=== PATIENT | female | born 1975 | race Caucasian/White ===

== ENCOUNTER 2018-01-09 12:03 | Emergency (ER) | payer SELFPAY ==
--- OUTSIDE RECORDS SUMMARY | 2018-01-09 12:07 | XMS REPORT | Continuity of Care Document ---
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 [place] 14.5 /2014 [place] HEMATOLOGY MCH 28.6 pg 27.0 - 06/01 [place] 31.0 /2014 [place] HEMATOLOGY MCHC 32.8 g/dL 32.0 - 06/01 [place] 36.0 [place] HEMATOLOGY Hct 38.3 % 36.0 - 06/01 [place] 48.0 /2014 [place] HEMATOLOGY MCV 87.1 fL 80.0 - 06/01 [place] 98.0 /2014 [place] HEMATOLOGY RBC 4.39 M/CMM 4.20 - 06/01 [place] 5.40 /2014 [place] HEMATOLOGY Hgb 12.6 g/dL 12.0 - 06/01 [place] 16.0 /2014 [place] HEMATOLOGY WBC 7.4 K/CMM 3.7 - 10.4 06/01 [place] HEMATOLOGY Basophils # 0.0 K/CMM 0.0 - 0.2 06/01 [place] HEMATOLOGY Eosinophils 0.1 K/CMM 0.0 - 0.5 06/01 [place] # /2014 [place] HEMATOLOGY Segs-Bands # 6.7 K/CMM 1.5 - 8.1 06/01 [place] HEMATOLOGY Lymphocytes 4.2 % 20.0 - 06/01 [place] 40.0 /2014 [place] HEMATOLOGY Segs 90.4 % 45.0 - 06/01 [place] 75.0 /2014 [place] HEMATOLOGY Eosinophils 1.6 % 0.0 - 4.0 06/01 [place] HEMATOLOGY Monocytes 3.7 % 2.0 - 12.0 06/01 [place] HEMATOLOGY Basophils 0.1 % 0.0 - 1.0 06/01 [place] HEMATOLOGY RBC Morph Normal 06/01 [place] (06/01/14 12:37 PM) HEMATOLOGY Plt Morph Normal 06/01 [place] /2014 [place] (06/01/14 12:37 PM) HEMATOLOGY Monocytes # 0.3 K/CMM 0.0 - 0.8 06/01 [place] HEMATOLOGY Lymphocytes 0.3 K/CMM 1.0 - 5.5 06/01 [place] # /2014 [place] Chest 2 Chest 2 Chest 2 views. 06/01 [place] views views /2014 HISTORY: Cough and fever. Read by: Davian Merino MD Dictated Date/time: 06/01/14 15:24 Electronically Signed by: Davian Merino MD 06/01/14 15:25 FINAL REPORT Cardiac silhouette normal in size. No active infiltrates in either lung. CONCLUSION: 1. No active disease in the chest. Brain wo Brain wo Examination: Brain wo contrast CT 06/01 [facility] contrast CT contrast CT /2014 Dose: 691 mGy-cm Read by: Karl Riddle MD Dictated Date/time: 06/01/14 13:52 History: Syncope Electronically Signed by: Karl Riddle MD 06/01/14 14:10 FINAL REPORT DIAGNOSIS: 1. No acute intracranial findings are identified. 2. Postoperative changes of a suboccipital craniotomy 3. Other findings as below. FINDINGS: CT scanning of the brain without contrast was completed. Tube [employer] Operator views demonstrate no incidental findings.. The exam is compared to recent MRI dated 28 April 2014 which demonstrated recent yañez ges of suboccipital craniotomy for Chiari one malformation. No evidence of edema, acute infarction, mass or mass-effect is identified. The ventricles are normal. There is no evidence intra or extra-axial hemorrhage. No abnormal fluid collections are evident. Deep white matter and basal ganglia appear unremarkable. The sinuses, as seen, demonstrate no abnormality. Of note are changes of recent suboccipital craniotomy with a small posterior fluid collection at the site of surgical resection of the inferior margin of the occipital bone with ectasia of the dura s econdary to occipital craniotomy. On this nonenhanced study, it is somewhat difficult to exclude a small seroma posteriorly. Brain w/wo Brain w/wo EXAM: MRI OF THE BRAIN WITH AND WITHOUT CONTRAST [facility] contrast contrast MRI /2014 [facility] DATE: 04/28/2014. Read by: Olga Travis MD Dictated Date/time: 04/28/14 17:15 Electronically Signed by: Olga Travis MD 04/28/14 17:24 FINAL REPORT CLINICAL HISTORY: Chiari malformation status post surgery February 2014 COMPARISON: none TECHNIQUE : Multiplanar imaging of the brain was obtained with and without contrast. 17 cc of Omniscan was administered intravenously. FINDINGS: Interval postsurgical changes related to suboccipital decompression with small areas of encephalomalacia in the inferior aspects of the cerebellar tonsils. A small postsurgical fluid collection/pseudome ningocele is seen dorsal to the craniotomy defect. A small postoperative subdural hygroma/chronic subdural hematoma is seen in the left aspect of the posterior fossa measuring up to 6 mm in thickness wi th mild indentation of the underlying left cerebellar hemisphere. Remainder of the brain parenchyma is unchanged in appearance. Stable scattered foci of T2 and FLAIR hyperintense signal abnormality in the supratentorial white matter are nonspecific. Ventricles are nor mal in size. The basal cisterns are patent. The major intracranial flow voids are preserved. No abnormal parenchymal enhancement. IMPRESSION: 1. Postsurgical changes related to recent suboccipital decompression. 2. No acute intracranial abnormality. CHEM PANEL Magnesium 2.0 mg/dL 1.8 - 2.4 02/28 [facility]2013 [facility] CHEM PANEL Phosphorus 3.2 mg/dL 2.5 - 4.5 02/[address] CHEM PANEL eGFR 94 02/28 1Result Comment: The eGFR is calculated using the CKD-EPI formula. In most young, healthy individuals the eGFR will be >90 mL/ min/1.73m2. The eGFR declines with age. An eGFR of 60-89 may be normal in [facility] mL/min/1.7 /2013 some populations, particularly the elderly, for whom the CKD-EPI formula has not been extensively validated. Use of the eGFR is not recommended in the following populations: [address] Individuals with unstable creatinine concentrations, including patients and those with serious co-morbid conditions. Patients with extremes in muscle mass or diet. The data above are obtained from the National Kidney Disease Education Program (NKDEP) which additionally recommends that when the eGFR is used in patients with extremes of body mass index for purposes of drug dosing, the eGFR should be multiplied by the estimated BMI. CHEM PANEL Calcium Lvl 8.5 mg/dL 8.5 - 10.5 02/28 [facility] CHEM PANEL Glucose Lvl 114 mg/dL 70 - 99 02/28 4Interpretive Data: Adult reference range values reflect the clinical guidelines of the [place] [employer]. [facility] CHEM PANEL CO2 27 meq/L 24 - 32 02/28 [facility] CHEM PANEL Chloride Lvl 103 meq/L 95 - 109 02/28 [facility] CHEM PANEL Sodium Lvl 138 meq/L 135 - 145 02/28 [facility] CHEM PANEL Creatinine 0.8 mg/dL 0.5 - 1.4 02/28 [facility] CHEM PANEL Potassium 4.1 meq/L 3.5 - 5.1 02/28 [facility] CHEM PANEL BUN 9 mg/dL 7 - 22 02/28 [facility] CHEM PANEL AGAP 12.1 meq/L 10.0 - 02/28 20.0 [facility] HEMATOLOGY Basophils # 0.1 K/CMM 0.0 - 0.2 02/28 [facility] HEMATOLOGY Monocytes # 0.9 K/CMM 0.0 - 0.8 02/28 [facility] HEMATOLOGY Lymphocytes 1.5 K/CMM 1.0 - 5.5 02/28 [facility] HEMATOLOGY Segs-Bands # 14.7 K/CMM 1.5 - 8.1 02/28 [facility] HEMATOLOGY Basophils 0.5 % 0.0 - 1.0 02/28 [facility] HEMATOLOGY Monocytes 5.1 % 2.0 - 12.0 02/28 [facility] HEMATOLOGY Lymphocytes 8.9 % 20.0 - 02/28 40.0 [facility] HEMATOLOGY Segs 85.5 % 45.0 - 02/28 75.0 [facility] HEMATOLOGY Eosinophils 0.1 % 0.0 - 4.0 02/28 [facility] HEMATOLOGY MPV 8.7 fL 7.4 - 10.4 02/28 [facility] HEMATOLOGY Platelet 237 K/CMM 133 - 450 02/28 [facility] HEMATOLOGY RDW 13.3 % 11.5 - 02/28 [facility] 14.5 [facility] HEMATOLOGY MCHC 34.1 g/dL 32.0 - 02/28 [facility] 36.0 [facility] HEMATOLOGY MCH 29.9 pg 27.0 - 02/28 [facility] 31.0 [facility] HEMATOLOGY MCV 87.9 fL 80.0 - 02/28 [facility] 98.0 /2013 [facility] HEMATOLOGY Hct 39.0 % 36.0 - 02/28 [facility] 48.0 [facility] HEMATOLOGY Hgb 13.3 g/dL 12.0 - 02/28 [facility] 16.0 [facility] HEMATOLOGY RBC 4.44 M/CMM 4.20 - 02/28 [facility] 5.40 /2013 [facility] HEMATOLOGY WBC 17.2 K/CMM 3.7 - 10.4 02/28 [facility] PARATHYROID Ca Norm WB 1.10 1.05 - 02/28 [facility] PROFILE mMol/L 1. [facility] PARATHYROID Ca Ion WB 1.09 1. - 02/28 [facility] PROFILE mMol/L 1. [facility] CHEM PANEL Magnesium 2.5 mg/dL 1.8 - 2.4 02/27 [facility] CHEM PANEL Phosphorus 3.9 mg/dL 2.5 - 4.5 02/27 [facility] ELECTROLYTE AGAP 14.0 meq/L 10.0 - 02/27 [facility] 20.0 [facility] ELECTROLYTE Glucose Lvl 110 mg/dL 70 - 99 02/27 5Interpretive Data: Adult reference range values reflect the clinical guidelines of the [place] [employer]. [facility] ELECTROLYTE Chloride Lvl 107 meq/L 95 - 109 02/27 [facility] ELECTROLYTE Potassium 4.0 meq/L 3.5 - 5.1 02/27 [facility] ELECTROLYTE Sodium Lvl 142 meq/L 135 - 145 02/27 [facility] ELECTROLYTE Creatinine 0.9 mg/dL 0.5 - 1.4 02/27 [facility] ELECTROLYTE BUN 8 mg/dL 7 - 22 02/27 [facility] ELECTROLYTE Calcium Lvl 8.5 mg/dL 8.5 - 10.5 02/27 [facility] ELECTROLYTE CO2 25 meq/L 24 - 32 02/27 [facility] S [facility] ELECTROLYTE eGFR 82 02/27 2Result Comment: The eGFR is calculated using the CKD-EPI formula. In most young, healthy individuals the eGFR will be > 90 mL/min/1.73m2. The eGFR declines with age. An eGFR of 60-89 may be normal in [facility] mL/min/1. some populations, particularly the elderly, for whom the CKD-EPI formula has not been extensively validated. Use of the eGFR is not recommended in the following populations: [address] Individuals with unstable creatinine concentrations, including patients and those with serious co-morbid conditions. Patients with extremes in muscle mass or diet. The data above are obtained from the National Kidney Disease Education Program (NKDEP) which additionally recommends that when the eGFR is used in patients with extremes of body mass index for purposes of drug dosing, the eGFR should be multiplied by the estimated BMI. HEMATOLOGY Platelet 262 K/CMM 133 - 450 02/27 [facility] HEMATOLOGY MPV 8.7 fL 7.4 - 10.4 02/27 [facility] HEMATOLOGY RDW 13.2 % 11.5 - 02/27 [facility] 14.5 [facility] HEMATOLOGY MCHC 34.2 g/dL 32.0 - 02/27 36.0 [facility] HEMATOLOGY MCV 88.0 fL 80.0 - 02/27 98.0 [facility] HEMATOLOGY MCH 30.1 pg 27.0 - 02/27 31.0 [facility] HEMATOLOGY RBC 4.53 M/CMM 4.20 - 02/27 [place] 5.40 /2013 [facility] HEMATOLOGY WBC 20.3 K/CMM 3.7 - 10.4 02/27 [facility] HEMATOLOGY Hgb 13.7 g/dL 12.0 - 02/27 16.0 [facility] HEMATOLOGY Hct 39.9 % 36.0 - 02/27 48.0 [facility] HEMATOLOGY Segs-Bands # 18.6 K/CMM 1.5 - 8.1 02/27 [facility] HEMATOLOGY Segs 91.9 % 45.0 - 02/27 [place] 75.0 [facility] HEMATOLOGY Monocytes 3.5 % 2.0 - 12.0 02/27 [facility] HEMATOLOGY Basophils 0.2 % 0.0 - 1.0 02/27 [facility] HEMATOLOGY Lymphocytes 4.4 % 20.0 - 02/27 [facility] 40. [facility] HEMATOLOGY Monocytes # 0.7 K/CMM 0.0 - 0.8 02/27 [facility] HEMATOLOGY Lymphocytes 0.9 K/CMM 1.0 - 5.5 02/27 [facility] PARATHYROID Ca Norm WB 1.05 1. - 02/27 [facility] PROFILE mMol/L 1. [facility] PARATHYROID Ca Ion WB 1.04 1.05 - 02/27 [facility] PROFILE mMol/L 1. [facility] BACTERIAL - MRSA by PCR Negative 02/26 11Interpretive Data: Interpretive Data: The [employer] Light[employer] MRSA assay is a qualitative test for the direct detection of nasal colonization with methicillin-resistant Staphylococcus aureus (MRSA) to aid [facility] in the prevention and control of MRSA infections in healthcare settings. A positive result does not indicate an infection or require treatment. A negative result does not exclude colonization or infection. [facility] (02/26/14 5:00 PM) [place] The polymerase chain reaction (PCR) assay detects a proprietary sequence indicative of the integration of the SCCmec cassette into the Staphylococcus aureus chromosome, indicating the presence of MRSA D NA. The assay utilizes FDA cleared IVD reagents. Performance characteristics have been verified by the [facility] within the [facility]. The [facility] atory is authorized under the Clinical Laboratory Improvement Amendment of 1988 (CLIA-88) to perform high complexity testing. CHEM PANEL eGFR 82 02/26 3Result Comment: The eGFR is calculated using the CKD-EPI formula. In most young, healthy individuals the eGFR will be >90 mL/ min/1.73m2. The eGFR declines with age. An eGFR of 60-89 may be normal in [facility] mL/min/1. some populations, particularly the elderly, for whom the CKD-EPI formula has not been extensively validated. Use of the eGFR is not recommended in the following populations: [address] Individuals with unstable creatinine concentrations, including patients and those with serious co-morbid conditions. Patients with extremes in muscle mass or diet. The data above are obtained from the National Kidney Disease Education Program (NKDEP) which additionally recommends that when the eGFR is used in patients with extremes of body mass index for purposes of drug dosing, the eGFR should be multiplied by the estimated BMI. CHEM PANEL Calcium Lvl 8.1 mg/dL 8.5 - 10.5 02/26 [facility] CHEM PANEL Potassium 3.8 meq/L 3.5 - 5.1 02/26 [facility] Center CHEM PANEL Sodium Lvl 141 meq/L 135 - 145 02/26 [facility] CHEM PANEL Creatinine 0.9 mg/dL 0.5 - 1.4 02/26 [facility] Center CHEM PANEL CO2 21 meq/L 24 - 32 02/26 [facility] CHEM PANEL Chloride Lvl 109 meq/L 95 - 109 02/26 [facility] CHEM PANEL BUN 11 mg/dL 7 - 22 02/26 [facility] CHEM PANEL Glucose Lvl 145 mg/dL 70 - 99 02/26 6Interpretive Data: Adult reference range values reflect the clinical guidelines of the [place] [employer]. [facility] CHEM PANEL AGAP 14.8 meq/L 10.0 - 02/26 20. [facility] CHEM PANEL Magnesium 1.5 mg/dL 1.8 - 2.4 02/26 [facility] Center CHEM PANEL Phosphorus 2.2 mg/dL 2.5 - 4.5 02/26 [facility] CHEM PANEL Bili Direct 0.1 mg/dL 0.0 - 0.3 02/26 [facility] CHEM PANEL Total 6.2 g/dL 6.4 - 8.4 02/26 [facility] CHEM PANEL ALT 27 unit/L 0 - 65 02/26 [facility] CHEM PANEL Albumin Lvl 3.3 g/dL 3.5 - 5.0 02/26 [facility] CHEM PANEL Alk Phos 93 unit/L 39 - 136 02/26 [facility] CHEM PANEL AST 30 unit/L 0 - 37 02/26 [facility] CHEM PANEL Bili Total 0.5 mg/dL 0.2 - 1.3 02/26 [facility] CHEM PANEL Bili 0.4 mg/dL 0.0 - 1.0 02/26 [facility] Center CHEM PANEL Globulin 2.9 g/dL 2.0 - 4.0 02/26 [facility] CHEM PANEL A/G Ratio 1.1 0.7 - 1.6 02/26 [facility] HEMATOLOGY Platelet 235 K/CMM 133 - 450 02/26 [facility] HEMATOLOGY MPV 8.5 fL 7.4 - 10.4 02/26 [facility] HEMATOLOGY WBC 15.5 K/CMM 3.7 - 10.4 02/26 [facility] HEMATOLOGY RBC 4.59 M/CMM 4.20 - 02/26 5.40 [facility] HEMATOLOGY MCV 88.6 fL 80.0 - 02/26 98.0 [facility] HEMATOLOGY MCH 29.0 pg 27.0 - 02/26 31.0 [facility] HEMATOLOGY Hct 40.7 % 36.0 - 02/26 48.0 [facility] HEMATOLOGY Hgb 13.3 g/dL 12.0 - 02/26 16.0 [facility] HEMATOLOGY MCHC 32.7 g/dL 32.0 - 02/26 36.0 [facility] HEMATOLOGY RDW 13.3 % 11.5 - 02/26 14.5 [facility] HEMATOLOGY Segs 94.3 % 45.0 - 02/26 75.0 /2013 [facility] HEMATOLOGY Eosinophils 0.1 % 0.0 - 4.0 02/26 [facility] HEMATOLOGY Lymphocytes 4.6 % 20.0 - 02/26 40.0 /2013 [facility] HEMATOLOGY Basophils 0.1 % 0.0 - 1.0 02/26 [facility] HEMATOLOGY Monocytes 0.9 % 2.0 - 12.0 02/26 [facility] HEMATOLOGY Segs-Bands # 14.6 K/CMM 1.5 - 8.1 02/26 [facility] HEMATOLOGY Lymphocytes 0.7 K/CMM 1.0 - 5.5 02/26 [facility] HEMATOLOGY Monocytes # 0.1 K/CMM 0.0 - 0.8 02/26 [facility] HEMATOLOGY PTT 34.5 s 22.9 - 02/26 9Interpretive [place] 35.8 Data: [facility] Range: 57 - 92 [place] HEMATOLOGY PT 14.0 s 12.0 - 02/26 [place] 14.7 [facility] HEMATOLOGY INR 1.08 0.85 - 02/26 7Interpretive Data: RECOMMENDED RANGES FOR PROTIME INR: [facility] . 2.0-3.0 for most medical and surgical thromboembolic states. Medical 2.5-3.5 for artificial heart valves and recurrent embolism. Center INR SHOULD BE USED ONLY FOR PATIENTS ON STABLE ANTICOAGULANT THERAPY. BLOOD BANK ABO/Rh A NEG 02/26 [facility] RESULTS [facility] BLOOD BANK Antibody Negative 02/26 [facility] RESULTS [facility] (02/26/14 7:45 AM) Center URINE CHEM U Preg Negative Negative 02/26 [facility] (02/26/14 7:34 AM) [place] HEMATOLOGY PTT 36.9 s 22.9 - 02/10 10Interpretiv [facility] 35.8 e Data: [facility] Therapeutic Range: 57 - 92 [place] HEMATOLOGY PT 13.5 s 12.0 - 02/10 [facility] 14. [facility] HEMATOLOGY INR 1.03 0.85 - 02/10 8Interpretive Data: RECOMMENDED RANGES FOR PROTIME INR: [facility] . 2.0-3.0 for most medical and surgical thromboembolic states. Medical 2.5-3.5 for artificial heart valves and recurrent embolism. Center INR SHOULD BE USED ONLY FOR PATIENTS ON STABLE ANTICOAGULANT THERAPY. HEMATOLOGY Eosinophils 0.2 K/CMM 0.0 - 0.5 02/10 [facility] HEMATOLOGY Eosinophils 2.3 % 0.0 - 4.0 02/10 [facility] Vital Signs Vital Sign Value Date Comments Source Heart Rate 88 11/30/2014 [facility] Temperature Oral (F) 98.0 F 11/30/2014 [facility] Systolic (mm Hg) 107 11/30/2014 [facility] Diastolic (mm Hg) 71 11/30/2014 [facility] Respitory Rate 18 11/30/2014 [facility] Weight 68.182 11/30/2014 [facility] Height 157.48 cm 11/30/2014 [facility] BMI Calculated 27.49 11/30/2014 [facility] Systolic (mm Hg) 114 11/30/2014 [facility] Diastolic (mm Hg) 70 11/30/2014 [facility] Heart Rate 89 11/30/2014 [facility] Respitory Rate 18 11/30/2014 [facility] Temperature Oral (F) 98.2 F 11/30/2014 [facility] Weight 160.2 06/24/2014 [facility] Height 62 06/24/2014 [facility] Temperature Oral (F) 97.5 F 06/24/2014 [facility] Heart Rate 94 06/24/2014 [facility] Systolic (mm Hg) 113 06/24/2014 [facility] Diastolic (mm Hg) 76 06/24/2014 [facility] Respitory Rate 18 06/01/2014 [place] Heart Rate 102 06/01/2014 [place] Systolic (mm Hg) 91 06/01/2014 [place] Diastolic (mm Hg) 61 06/01/2014 [place] Temperature Oral (F) 98.4 F 06/01/2014 [place] Diastolic (mm Hg) 58 06/01/2014 [place] Systolic (mm Hg) 99 06/01/2014 [place] Respitory Rate 16 06/01/2014 [place] Heart Rate 110 06/01/2014 [place] Temperature Oral (F) 102.5 F 06/01/2014 [place] Heart Rate 112 06/01/2014 [place] Respitory Rate 17 06/01/2014 [place] Diastolic (mm Hg) 69 06/01/2014 [place] Systolic (mm Hg) 101 06/01/2014 [place] Temperature Oral (F) 99 F 06/01/2014 [place] Weight 73.636 06/01/2014 [place] Weight 163 04/07/2014 [facility] Height 62 04/07/2014 [facility] Temperature Oral (F) 98.2 F 04/07/2014 [facility] Respitory Rate 18 04/07/2014 [facility] Heart Rate 103 04/07/2014 [facility] Systolic (mm Hg) 118 04/07/2014 [facility] Diastolic (mm Hg) 76 04/07/2014 [facility] Weight 165.4 03/10/2014 [facility] Temperature Oral (F) 97.3 F 03/10/2014 [facility] Respitory Rate 18 03/10/2014 [facility] Heart Rate 87 03/10/2014 [facility] Height 62 03/10/2014 [facility] Systolic (mm Hg) 115 03/10/2014 [facility] Diastolic (mm Hg) 77 03/10/2014 [facility] Systolic (mm Hg) 102 02/28/2014 [facility] Respitory Rate 18 02/28/2014 [facility] Temperature Oral (F) 98.4 F 02/28/2014 [facility] Heart Rate 74 02/28/2014 [facility] Diastolic (mm Hg) 66 02/28/2014 [facility] Temperature Oral (F) 98.5 F 02/28/2014 [facility] Heart Rate 71 02/28/2014 [facility] Diastolic (mm Hg) 62 02/28/2014 [facility] Systolic (mm Hg) 99 02/28/2014 [facility] Respitory Rate 18 02/28/2014 [facility] Heart Rate 78 02/28/2014 [facility] Temperature Oral (F) 98.4 F 02/28/2014 [facility] Diastolic (mm Hg) 64 02/28/2014 [facility] Systolic (mm Hg) 101 02/28/2014 [facility] Respitory Rate 17 02/28/2014 [facility] BMI Calculated 33.71 02/26/2014 [facility] Weight 83.6 02/26/2014 [facility] Height 157.48 cm 02/26/2014 [facility] BMI Calculated 29.33 02/26/2014 [facility] Weight 72.727 02/26/2014 [facility] Height 157.48 cm 02/26/2014 [facility] Weight 167 02/24/2014 [facility] Height 62 02/24/2014 [facility] Temperature Oral (F) 98 F 02/24/2014 [facility] Heart Rate 83 02/24/2014 [facility] Systolic (mm Hg) 106 02/24/2014 [facility] Diastolic (mm Hg) 77 02/24/2014 [facility] Height 157.48 cm 02/10/2014 [facility] Weight 75 02/10/2014 [facility] BMI Calculated 30.24 02/10/2014 [facility] Weight 164.2 12/30/2013 [facility] Height 62 12/30/2013 [facility] Temperature Oral (F) 97.2 F 12/30/2013 [facility] Heart Rate 83 12/30/2013 [facility] Systolic (mm Hg) 117 12/30/2013 [facility] Diastolic (mm Hg) 77 12/30/2013 [facility] Encounters Location Location Encounter Encounter Reason Attending ADM DC Status Source Details Type Number For Provider Date Date Visit [facility] [id number] Sander Gordon 12/30 12/30 [facility]10 [facility] [id number] Sander Gordon 01/01 01/02 [facility] Outpt Diag [id number] Sander Gordon 01/02 01/03 [facility] /2013 [facility] [place] [facility] [id number] Sander Gordon 01/06 01/06 [facility] Visit 2860 MD /2013 Neuro e [facility] [id number] Sander Gordon 02/24 02/24 [facility]60 [facility] [id number] Sander Gordon 02/26 02/28 [facility] /2013 [facility] [id number] Sander Gordon 03/10 03/10 [facility] Visit 3680 MD /2013 Neuro e [facility] [id number] Sander Gordon 04/07 04/07 [facility]30 [facility] [id number] Sander Gordon 04/28 04/29 [facility] Services /2014 [facility] [place] [id number] Eliazar Gordon 06/01 06/01 [facility] [place] [facility] /2014 [facility] [id number] Sander Gordon 06/24 06/24 [facility] Visit 2980 MD /2014 Neuro e [facility] [place] [id number] Lani 11/30 11/30 [facility] [place] /2014 [facility] Outpatient [id number] RYLAN HAWKINS 08/11 [facility]2016 [facility] Procedure Code Date Perfomer Comments Source smoking/tobacco 14 04/07/2014 yes [facility] cessation, patient education and counseling smoking/tobacco 14 03/10/2014 yes [facility] cessation, patient education and counseling Tooth extraction [id number] [facility]
--- OUTSIDE RECORDS SUMMARY | 2018-01-09 12:08 | XMS REPORT | Summary of Care ---
:1975 Author Encounter HORTENCIA Boothe(VEE) [id number] Date(s): 04/28/14 - 04/28/14 [facility] Outpatient Imaging - [facility] [address] Discharge Disposition: Home Physician Attending: Sander Gordon MD Reason for Visit 348.4 - COMPRESSION OF Problem List Condition Effective Dates Status Health Status Informant Anxiety(Confirmed) Active Chiari malformation type Active I(Confirmed) Depression(Confirmed) Active GERD - Gastro-esophageal reflux Active disease(Confirmed) Migraine headache(Confirmed)1 Resolved 1with dizziness and syncopy Allergies, Adverse Reactions, Alerts Substance Reaction Severity Status Benadryl Active codeine Active sulfa drugs Active Medications No data available for this section Medications Administered During Your Visit No data available for this section Immunizations No data available for this section Social History Social History Type Response Alcohol Use: Current, Frequency: 1-2 times per month, Previous treatment: None Smoking Status Current every day smoker, Type: Cigarettes, Exposure to Tobacco Smoke pt smokes, Cigarette Smoking Last 365 Days Yes, Reg Smoking Cessation Counseling No
--- OUTSIDE RECORDS SUMMARY | 2018-01-09 12:08 | XMS REPORT | Summary of Care ---
:1975 Author Encounter [facility] Jonathanr_leidy(VEE) [id number] Date(s): 01/02/14 - 01/02/14 [facility] Outpatient Imaging [address] Discharge Disposition: Home Physician Attending: Sander Gordon MD Reason for Visit 348.4 - COMPRESSION OF Problem List No data available for this section Allergies, Adverse Reactions, Alerts No data available for this section Medications No data available for this section Medications Administered During Your Visit No data available for this section Immunizations No data available for this section
--- OUTSIDE RECORDS SUMMARY | 2018-01-09 12:08 | XMS REPORT | Summary of Care ---
:1975 Author Encounter [id number]) [id number] Date(s): 02/26/14 - 02/28/[address] Discharge Disposition: Home Physician Attending: Sander Gordon MD Physician Admitting: Sander Gordon MD Physician_Referring: Sander Gordon MD Reason for Visit CHIARI MALFORMATION Vital Signs Most recent to oldest 1 2 3 [Reference Range]: Height 157.48 cm 157.48 cm 157.48 cm (02/26/14 4:21 PM) (02/26/14 7:36 AM) (02/10/14 2:19 PM) Temperature Oral [96.4-99.1 98.4 DegF 98.5 DegF 98.4 DegF DegF] (02/28/14 8:30 AM) (02/28/14 4:11 AM) (02/28/14 12:09 AM) Systolic Blood Pressure 102 mmHg 99 mmHg 101 mmHg [90-140 mmHg] (02/28/14 8:30 AM) (02/28/14 4:11 AM) (02/28/14 12:09 AM) Diastolic Blood Pressure 66 mmHg 62 mmHg 64 mmHg [60-90 mmHg] (02/28/14 8:30 AM) (02/28/14 4:11 AM) (02/28/14 12:09 AM) Respiratory Rate [14-20 BRMIN] 18 BRMIN 18 BRMIN 17 BRMIN (02/28/14 8:30 AM) (02/28/14 4:11 AM) (02/28/14 12:09 AM) Peripheral Pulse Rate [60-100 74 bpm 71 bpm 78 bpm bpm] (02/28/14 8:30 AM) (02/28/14 4:11 AM) (02/28/14 12:09 AM) Weight 83.6 kg 72.727 kg 75 kg (02/26/14 4:21 PM) (02/26/14 7:36 AM) (02/10/14 2:19 PM) Body Mass Index 33.71 m2 29.33 m2 30.24 m2 (02/26/14 4:21 PM) (02/26/14 7:36 AM) (02/10/14 2:19 PM) Problem List Condition Effective Dates Status Health Status Informant Anxiety(Confirmed) Active Chiari malformation type Active I(Confirmed) Depression(Confirmed) Active GERD - Gastro-esophageal reflux Active disease(Confirmed) Migraine headache(Confirmed)1 Resolved 1with dizziness and syncopy Allergies, Adverse Reactions, Alerts Substance Reaction Severity Status Benadryl Active codeine Active sulfa drugs Active Medications acetaminophen-hydrocodone 325 mg-10 mg oral tablet 1 tab, Route: PO, Drug Form: TAB, Dosing Weight 72.727, kg, Q4H, PRN Pain Score 4-6, Start date: 02/26/14 14:16:00, Duration: 30 day, Stop date: 03/28/14 14:15: 00 Notes: (Same as: [place] 325/10) Start Date: 02/26/14 Stop Date: 02/28/14 Status: Discontinuedacetaminophen-hydrocodone 325 mg-10 mg oral tablet 2 tab, Route: PO, Drug Form: TAB, Dosing Weight 72.727, kg, Q8H, PRN Pain Score 7-10, Start date: 02/26/14 14:16:00, Duration: 30 day, Stop date: 03/28/14 14:15 :00 Notes: (Same as: [place] 325/10) Start Date: 02/26/14 Stop Date: 02/28/14 Status: Discontinuedacetaminophen-hydrocodone 325 mg-10 mg oral tablet 1 tab, Route: PO, Drug Form: TAB, Dosing Weight 72.727, kg, Q4H, Start date: 10/04 16:00:00, Duration: 30 day, Stop date: 03/28/14 12:00:00 Notes: (Same as: [place] 325/10) Start Date: 02/26/14 Stop Date: 02/28/14 Status: Discontinuedacetaminophen-hydrocodone 325 mg-5 mg oral tablet 1 tab, Route: PO, Drug Form: TAB, Dosing Weight 72.727, kg, Q4H, PRN Pain Score 1-3, Start date: 02/26/14 14:16:00, Duration: 30 day, Stop date: 03/28/14 14:15: 00 Notes: (Same as: [place] 325/5) Start Date: 02/26/14 Stop Date: 02/28/14 Status: DiscontinuedAncef 2 gm, Route: IVPB, ONCE, Dosing Weight 72.727, kg, Start date: 02/26/14 9:20:00 , Duration: 1 doses or times, Stop date: 02/26/14 9:20:00 Start Date: 02/26/14 Stop Date: 02/26/14 Status: Completedbisacodyl 10 mg, 1 supp, Route: MO, Drug form: SUPP, Daily, Dosing Weight 72.727, kg, PRN Constipation, Start date: 02/26/14 14:16:00, Duration: 30 day, Stop date: 14:15:00 Notes: (Same As: Dulcolax, [place]-Lax) Start Date: 02/26/14 Stop Date: 02/28/14 Status: DiscontinuedceFAZolin 2 gm, 50 mL, Route: IVPB, Drug form: INJ, PRE OP, Start date: 02/26/14 4:00:00, Duration: 1 day, Stop date: 02/27/14 3:59:00 Start Date: 02/26/14 Stop Date: 02/28/14 Status: DiscontinuedceFAZolin (SCIP) + Sodium Chloride 0.9% IV 100 mL 2 gm, Route: IVPB, ABXQ8H, Dosing Weight 72.727, kg, Start date: 02/26/14 16:00: 00, Stop date: 02/27/14 9:20:00 Notes: (Same As: Ancef, Kefzol) Start Date: 02/26/14 Stop Date: 02/27/14 Status: Completeddexamethasone 1 mg oral tablet 1 mg=1 tab, PO, BID, # 14 tab, 0 Refill(s) Start Date: 02/28/14 Stop Date: 03/07/14 Status: OrderedDextrose 50% Syringe 6.25 gm, 12.5 mL, Route: IVP, Drug Form: INJ, Dosing Weight 72.727, kg, PRN, PRN Abnormal Lab Result, Start date: 02/26/14 14:16:00, Duration: 30 day, Stop date: 03/28/14 14:15:00 Start Date: 02/26/14 Stop Date: 02/28/14 Status: DiscontinuedDextrose 50% Syringe 12.5 gm, 25 mL, Route: IVP, Drug Form: INJ, Dosing Weight 72.727, kg, PRN, PRN Abnormal Lab Result, Start date: 02/26/14 14:16:00, Duration: 30 day, Stop date : 03/28/14 14:15:00 Start Date: 02/26/14 Stop Date: 02/28/14 Status: DiscontinuedDextrose 50% Syringe 25 gm, 50 mL, Route: IVP, Drug Form: INJ, Dosing Weight 72.727, kg, PRN, PRN Abnormal Lab Result, Start date: 02/26/14 14:16:00, Duration: 30 day, Stop date : 03/28/14 14:15:00 Start Date: 02/26/14 Stop Date: 02/28/14 Status: Discontinueddocusate sodium 100 mg oral capsule 100 mg=1 cap, PO, BID, # 20 cap, 0 Refill(s) Start Date: 02/28/14 Status: Ordereddocusate sodium 100 mg oral capsule 100 mg=1 cap, PO, BID, # 20 cap, 0 Refill(s) Start Date: 02/28/14 Status: OrderedEmend 150 mg, Route: IV, ONCE, Dosing Weight 72.727, kg, Start date: 02/26/14 15:20:00 , Stop date: 02/26/14 15:20:00 Start Date: 02/26/14 Stop Date: 02/26/14 Status: DeletedFlexeril 10 mg, 1 tab, Route: PO, Drug form: TAB, Q8H, Dosing Weight 83.6, kg, Start date : 02/27/14 8:00:00, Duration: 30 day, Stop date: 03/29/14 0:00:00 Notes: (Same As: Flexeril) Start Date: 02/27/14 Stop Date: 02/28/14 Status: Discontinuedflumazenil 0.2 mg, 2 mL, Route: IVP, Drug form: INJ, PRN, Dosing Weight 72.727, kg, PRN Benzodiazepine Reversal, Initial dose, Start date: 02/26/14 11:03:00, Duration: 1 day, Stop date: 02/27/14 11:02:00 Notes: (Same as: Romazicon) Start Date: 02/26/14 Stop Date: 02/26/14 Status: Discontinuedfosaprepitant + Sodium Chloride 0.9% IV 150 mL 150 mg, Route: IV, Drug form: INJ, ONCE, Start date: 02/26/14 15:27:00, Stop date: 02/26/14 15:27:00 Notes: Same as: Emend Start Date: 02/26/14 Stop Date: 02/26/14 Status: Completedheparin 5000 units/mL injectable solution 5,000 unit, 1 mL, Route: SUB-Q, Drug form: INJ, Q8H, Dosing Weight 83.6, kg, Start date: 02/27/14 23:59:00, Duration: 30 day, Stop date: 03/29/14 16:00:00 Notes: porcine heparin Start Date: 02/27/14 Stop Date: 02/28/14 Status: DiscontinuedhydrALAZINE 20 mg, 1 mL, Route: IVP, Drug form: INJ, Q2H, Dosing Weight 72.727, kg, PRN Other -See Comment, Start date: 02/26/14 14:16:00, Duration: 30 day, Stop date: 03/28/14 14:15:00, HTN Notes: (Same as: Apresoline)Push over 5 minutes Start Date: 02/26/14 Stop Date: 02/28/14 Status: Discontinuedhydromorphone 0.5 mg, 0.25 mL, Route: IVP, Drug form: INJ, Q5Min, Dosing Weight 72.727, kg, PRN Pain Score 7-10, Start date: 02/26/14 11:03:00, Duration: 4 doses or times, Stop date: 02/27/14 0:00:00 Notes: Same as: Dilaudid Start Date: 02/26/14 Stop Date: 02/26/14 Status: Discontinuedinsulin regular 100 units/mL human recombinant 3 unit, 0.03 mL, Route: SUB-Q, Drug form: SOLN, PRN, Dosing Weight 72.727, kg, PRN Abnormal Lab Result, Start date: 02/26/14 14:16:00, Duration: 30 day, Stop date: 03/28/14 14:15:00 Notes: (Same as: Humulin R) Roll in palms of hands gently; Do not shake vigorously. "single patientuse only"(Restricted to patients requiring a dose > 60 units) Stable for 28 days at room temperatureExpires in days from ___ Date Start Date: 02/26/14 Stop Date: 02/28/14 Status: Discontinuedinsulin regular 100 units/mL human recombinant 7 unit, 0.07 mL, Route: SUB-Q, Drug form: SOLN, PRN, Dosing Weight 72.727, kg, PRN Abnormal Lab Result, Start date: 02/26/14 14:16:00, Duration: 30 day, Stop date: 03/28/14 14:15:00 Notes: (Same as: Humulin R) Roll in palms of hands gently; Do not shake vigorously. "single patientuse only"(Restricted to patients requiring a dose > 60 units) Stable for 28 days at room temperatureExpires in days from ___ Date Start Date: 02/26/14 Stop Date: 02/28/14 Status: Discontinuedinsulin regular 100 units/mL human recombinant 5 unit, 0.05 mL, Route: SUB-Q, Drug form: SOLN, PRN, Dosing Weight 72.727, kg, PRN Abnormal Lab Result, Start date: 02/26/14 14:16:00, Duration: 30 day, Stop date: 03/28/14 14:15:00 Notes: (Same as: Humulin R) Roll in palms of hands gently; Do not shake vigorously. "single patientuse only"(Restricted to patients requiring a dose > 60 units) Stable for 28 days at room temperatureExpires in days from ___ Date Start Date: 02/26/14 Stop Date: 02/28/14 Status: Discontinuedlabetalol 10 mg, 2 mL, Route: IVP, Drug form: INJ, Q15Min, Dosing Weight 72.727, kg, PRN Hypertension, Start date: 02/26/14 14:16:00, Duration: 30 day, Stop date: 14:15:00, HTN Start Date: 02/26/14 Stop Date: 02/28/14 Status: DiscontinuedLyrica 75 mg oral capsule 75 mg=1 cap, PO, Daily, # 90 cap, 0 Refill(s) Start Date: 02/10/14 Stop Date: 02/26/14 Status: Completedmagnesium sulfate 2 gm, 50 mL, Route: IVPB, Drug form: INJ, Q2H, Start date: 02/27/14 2:00:00, Duration: 2 doses or times, Stop date: 02/27/14 4:00:00 Start Date: 02/27/14 Stop Date: 02/27/14 Status: Completedmorphine Sulfate 2 mg, 1 mL, Route: IVP, Drug form: INJ, Q2H, Dosing Weight 72.727, kg, PRN Pain Score 7-10, Start date: 02/26/14 14:16:00, Duration: 30 day, Stop date: 14:15:00 Notes: (Same as:MORPhine Sulfate) Start Date: 02/26/14 Stop Date: 02/28/14 Status: Discontinuednaloxone 0.04 mg, 0.1 mL, Route: IVP, Drug form: INJ, Q2MIN, Dosing Weight 72.727, kg, PRN Narcotic Reversal,Start date: 02/26/14 11:03:00, Duration: 8 doses or times , Stop date: 02/27/14 0:00:00 Notes: Same as Narcan Start Date: 02/26/14 Stop Date: 02/26/14 Status: DiscontinuedNasonex 50 mcg/inh nasal spray 50 microgram, Route: NASAL, Daily, Drug form: SPRY, Start date: 02/27/14 9:00:00 , Duration: 30 day, Stop date: 03/28/14 9:00:00 Notes: Non-formulary drug. (mometasone 50 microgram/inh 17 gm nasal SPR) (Same as:Nasonex) Start Date: 02/27/14 Stop Date: 02/27/14 Status: DeletedNasonex 50 mcg/inh nasal spray 1 spray, NASAL, Daily, 0 Refill(s) Start Date: 02/10/14 Status: OrderedNexIUM 40 mg, Route: PO, Drug form: ECCAP, Daily, Dosing Weight 83.6, kg, Start date: 02/27/14 9:00:00, Duration: 30 day, Stop date: 03/28/14 9:00:00 Start Date: 02/27/14 Stop Date: 02/26/14 Status: DeletedNexIUM 40 mg oral delayed release capsule 40 mg=1 cap, PO, Daily, 0 Refill(s) Start Date: 02/10/14 Status: OrderedNorco 5/325 oral tablet 1 tab, PO, Daily, 0 Refill(s) Start Date: 02/10/14 Status: Orderedondansetron 4 mg, Route: IVP, ONCE, Dosing Weight 72.727, kg, PRN Nausea & Vomiting, Start date: 02/26/14 11:03:00 Start Date: 02/26/14 Stop Date: 02/26/14 Status: Completedondansetron 4 mg, 2 mL, Route: IVP, Drug form: INJ, Q8H, Dosing Weight 72.727, kg, PRN Nausea & Vomiting, Start date: 02/26/14 14:16:00, Duration: 30 day, Stop date: 03/28/14 14:15:00 Notes: (Same as: Zofran) Start Date: 02/26/14 Stop Date: 02/28/14 Status: DiscontinuedPepcid 20 mg oral tablet 20 mg=1 tab, PO, BID, # 16 tab, 0 Refill(s) Start Date: 02/28/14 Stop Date: 03/08/14 Status: OrderedPhenergan 25 mg oral tablet 25 mg=1 tab, PO, Q4H, Nausea, # 30 tab, 0 Refill(s) Start Date: 02/28/14 Status: Orderedpotassium phosphate + Sodium Chloride 0.9% IV 250 mL 18 mmol, 6 mL, Route: IVPB, Drug form: INJ, ONCE, Start date: 02/27/14 2:00:00, Stop date: 02/27/14 2:00:00 Notes: (Same as: K Phosphate.) 1 mMol phoshate has 1.47 mEq potassium Infuse over 4 hours Start Date: 02/27/14 Stop Date: 02/27/14 Status: Completedpromethazine 6.25 mg, Route: IVPB, ONCE, Dosing Weight 72.727, kg, PRN Nausea & Vomiting , Start date: 02/26/14 11:03:00 Start Date: 02/26/14 Stop Date: 02/26/14 Status: Completedpromethazine 12.5 mg, 0.5 mL, Route: IVPB, Drug form: INJ, Q6H, Dosing Weight 72.727, kg, PRN Nausea & Vomiting, Start date: 02/26/14 14:16:00, Duration: 30 day, Stop date: 03/28/14 14:15:00 Notes: Do not give IV push. (Same as: Phenergan) Start Date: 02/26/14 Stop Date: 02/28/14 Status: DiscontinuedProtonix 40 mg, 1 tab, Route: PO, Drug form: ECTAB, Daily, Start date: 02/27/14 9:00:00, Duration: 30 day, Stop date: 03/28/14 9:00:00 Notes: (Same as: Protonix) Start Date: 02/27/14 Stop Date: 02/28/14 Status: DiscontinuedSaline Flush 0.9% 10 ml, Route: IVP, Drug Form: INJ, Dosing Weight 72.727, kg, PRN, PRN Line Flush , Start date: 02/26/14 14:16:00, Duration: 30 day, Stop date: 03/28/14 14:15:00 Notes: (Same as: BD Posiflush) Start Date: 02/26/14 Stop Date: 02/28/14 Status: DiscontinuedSaline Flush 0.9% 10 ml, Route: IVP, Drug Form: INJ, Dosing Weight 72.727, kg, Q12H, Start date: 02/26/14 21:00:00, Duration: 30 day, Stop date: 03/28/14 9:00:00 Notes: (Same as: BD Posiflush) Start Date: 02/26/14 Stop Date: 02/28/14 Status: DiscontinuedSenna 8.6 mg oral tablet 8.6 mg, 1 tab, Route: PO, Drug Form: TAB, Dosing Weight 72.727, kg, Q12H, Start date: 02/26/14 21:00:00, Duration: 30 day, Stop date: 03/28/14 9:00:00 Notes: (Same as: Senokot) Start Date: 02/26/14 Stop Date: 02/28/14 Status: DiscontinuedSEROquel XR 50 mg oral tablet, extended release 50 mg=1 tab, PO, Daily, 0 Refill(s) Start Date: 02/10/14 Stop Date: 02/26/14 Status: DiscontinuedSEROquel XR 50 mg oral tablet, extended release 50 mg=1 tab, PO, QPM, # 30 tab, 0 Refill(s) Start Date: 02/26/14 Status: Orderedsertraline 100 mg, 1 tab, Route: PO, Drug form: TAB, Daily, Dosing Weight 83.6, kg, Start date: 02/27/14 9:00:00, Duration: 30 day, Stop date: 03/28/14 9:00:00 Notes: (Same as: Zoloft) Start Date: 02/27/14 Stop Date: 02/28/14 Status: DiscontinuedSodium Chloride 0.9% + KCL 20mEq/L 1000ml (Premix) 1,000 mL 1,000 mL, Rate: 100 ml/hr, Infuse over: 10 hr, Route: IV, Dosing Weight 72.727 kg, Total Volume: 1,000, Start date: 02/26/14 14:16:00, Duration: 30 day, Stop date: 03/28/14 14:15:00 Notes: PREMIX IV - Do Not Alter Start Date: 02/26/14 Stop Date: 02/27/14 Status: DiscontinuedSodium Chloride 0.9% IV 1,000 mL 1,000 mL, Rate: 50 ml/hr, Infuse over: 20 hr, Route: IV, Dosing Weight 83.6 kg, Total Volume: 1,000,Start date: 02/26/14 16:54:00, Duration: 30 day, Stop date: 03/28/14 16:53:00 Start Date: 02/26/14 Stop Date: 02/27/14 Status: DiscontinuedZoloft 100 mg oral tablet PO, Daily, 0 Refill(s) Start Date: 02/10/14 Status: Ordered Results BLOOD BANK RESULTS Most recent to oldest [Reference Range]: 1 2 3 ABO/Rh A NEG *Unknown* (02/26/14 7:45 AM) Antibody Scrn Negative (02/26/14 7:45 AM) ELECTROLYTES Most recent to oldest 1 2 3 [Reference Range]: Sodium Lvl [135-145 mEq/L] 138 mEq/L 142 mEq/L 141 mEq/L (02/28/14 5:29 AM) (02/27/14 9:30 AM) (02/26/14 5:00 PM) Potassium Lvl [3.5-5.1 4.1 mEq/L 4.0 mEq/L 3.8 mEq/L mEq/L] (02/28/14 5:29 AM) (02/27/14 9:30 AM) (02/26/14 5:00 PM) Chloride Lvl [95-109 mEq/L] 103 mEq/L 107 mEq/L 109 mEq/L (02/28/14 5:29 AM) (02/27/14 9:30 AM) (02/26/14 5:00 PM) CO2 [24-32 mEq/L] 27 mEq/L 25 mEq/L 21 mEq/L (02/28/14 5:29 AM) (02/27/14 9:30 AM) *LOW* (02/26/14 5:00 PM) AGAP [10.0-20.0 mEq/L] 12.1 mEq/L 14.0 mEq/L 14.8 mEq/L (02/28/14 5:29 AM) (02/27/14 9:30 AM) (02/26/14 5:00 PM) CHEM PANEL Most recent to oldest 1 2 3 [Reference Range]: Creatinine Lvl [0.5-1.4 0.8 mg/dL 0.9 mg/dL 0.9 mg/dL mg/dL] (02/28/14 5:29 AM) (02/27/14 9:30 AM) (02/26/14 5:00 PM) eGFR 94 mL/min/1.73m2 1 82 mL/min/1.73m2 2 82 mL/min/1.73m2 3 *NA* *NA* *NA* (02/28/14 5:29 AM) (02/27/14 9:30 AM) (02/26/14 5:00 PM) BUN [7-22 mg/dL] 9 mg/dL 8 mg/dL 11 mg/dL (02/28/14 5:29 AM) (02/27/14 9:30 AM) (02/26/14 5:00 PM) Glucose Lvl [70-99 mg/dL] 114 mg/dL 4 110 mg/dL 5 145 mg/dL 6 *HI* *HI* *HI* (02/28/14 5:29 AM) (02/27/14 9:30 AM) (02/26/14 5:00 PM) Total Protein [6.4-8.4 g/dL] 6.2 g/dL *LOW* (02/26/14 5:00 PM) Albumin Lvl [3.5-5.0 g/dL] 3.3 g/dL *LOW* (02/26/14 5:00 PM) Globulin [2.0-4.0 g/dL] 2.9 g/dL (02/26/14 5:00 PM) A/G Ratio [0.7-1.6] 1.1 (02/26/14 5:00 PM) Calcium Lvl [8.5-10.5 mg/dL] 8.5 mg/dL 8.5 mg/dL 8.1 mg/dL (02/28/14 5:29 AM) (02/27/14 9:30 AM) *LOW* (02/26/14 5:00 PM) Phosphorus [2.5-4.5 mg/dL] 3.2 mg/dL 3.9 mg/dL 2.2 mg/dL (02/28/14 5:29 AM) (02/27/14 9:30 AM) *LOW* (02/26/14 5:00 PM) Magnesium Lvl [1.8-2.4 2.0 mg/dL 2.5 mg/dL 1.5 mg/dL mg/dL] (02/28/14 5:29 AM) *HI* *LOW* (02/27/14 9:30 AM) (02/26/14 5:00 PM) ALT [0-65 unit/L] 27 unit/L (02/26/14 5:00 PM) AST [0-37 unit/L] 30 unit/L (02/26/14 5:00 PM) Alk Phos [39-136 unit/L] 93 unit/L (02/26/14 5:00 PM) Bili Total [0.2-1.3 mg/dL] 0.5 mg/dL (02/26/14 5:00 PM) Bili Direct [0.0-0.3 mg/dL] 0.1 mg/dL (02/26/14 5:00 PM) Bili Indirect [0.0-1.0 0.4 mg/dL mg/dL] (02/26/14 5:00 PM) 1Result Comment: The eGFR is calculated using the CKD-EPI formula. In most young , healthy individualsthe eGFR will be >90 mL/min/1.73m2. The eGFR declines with age. An eGFR of 60-89 may be normal in some populations, particularly the elderly, for whom the CKD-EPI formula has not been extensively validated. Use of the eGFR is not recommended in the following populations: Individuals with unstable creatinine concentrations, including patients and those with serious co-morbid conditions. Patients with extremes in muscle mass or diet. The data above are obtained from the National Kid[employer] Disease Education Program ( [employer]) which additionally recommends that when the eGFR is used in patients with extremes of body mass index for purposesof drug dosing, the eGFR should be multiplied by the estimated BMI.2Result Comment: The eGFR is calculated using the CKD-EPI formula. In most young, healthy individualsthe eGFR will be >90 mL/ min/1.73m2. The eGFR declines with age. An eGFR of 60-89 may be normal in some populations, particularly the elderly, for whom the CKD-EPI formula has not been extensively validated. Use of the eGFR is not recommended in the following populations: Individuals with unstable creatinine concentrations, including patients and those with serious co-morbid conditions. Patients with extremes in muscle mass or diet. The data above are obtained from the National Kid[employer] Disease Education Program ( [employer]) which additionally recommends that when the eGFR is used in patients with extremes of body mass index for purposesof drug dosing, the eGFR should be multiplied by the estimated BMI.3Result Comment: The eGFR is calculated using the CKD-EPI formula. In most young, healthy individualsthe eGFR will be >90 mL/ min/1.73m2. The eGFR declines with age. An eGFR of 60-89 may be normal in some populations, particularly the elderly, for whom the CKD-EPI formula has not been extensively validated. Use of the eGFR is not recommended in the following populations: Individuals with unstable creatinine concentrations, including patients and those with serious co-morbid conditions. Patients with extremes in muscle mass or diet. The data above are obtained from the National Kid[employer] Disease Education Program ( [employer]) which additionally recommends that when the eGFR is used in patients with extremes of body mass index for purposesof drug dosing, the eGFR should be multiplied by the estimated BMI.4Interpretive Data: Adult reference range values reflect the clinical guidelines of the [place] [employer].5Interpretive Data: Adult reference range values reflect the clinical guidelines of the [place] [employer].6Interpretive Data: Adult reference range values reflect the clinical guidelines of the [place] [employer].PARATHYROID PROFILE Most recent to oldest [Reference Range]: 1 2 3 Ca Ion WB [1.05-1.25 mMol/L] 1.09 mMol/L 1.04 mMol/L (02/28/14 5:29 AM) *LOW* (02/27/14 9:30 AM) Ca Norm WB [1.05-1.25 mMol/L] 1.10 mMol/L 1.05 mMol/L (02/28/14 5:29 AM) (02/27/14 9:30 AM) URINE CHEM Most recent to oldest [Reference Range]: 1 2 3 U Preg [Negative] Negative (02/26/14 7:34 AM) HEMATOLOGY Most recent to oldest 1 2 3 [Reference Range]: WBC [3.7-10.4 K/CMM] 17.2 K/CMM 20.3 K/CMM 15.5 K/CMM *HI* *HI* *HI* (02/28/14 5:29 AM) (02/27/14 9:30 AM) (02/26/14 5:00 PM) RBC [4.20-5.40 M/CMM] 4.44 M/CMM 4.53 M/CMM 4.59 M/CMM (02/28/14:29 AM) (02/27/14 9:30 AM) (02/26/14 5:00 PM) Hgb [12.0-16.0 g/dL] 13.3 g/dL 13.7 g/dL 13.3 g/dL (02/28/14:29 AM) (02/27/14 9:30 AM) (02/26/14 5:00 PM) Hct [36.0-48.0 %] 39.0 % 39.9 % 40.7 % (02/28/14:29 AM) (02/27/14 9:30 AM) (02/26/14 5:00 PM) MCV [80.0-98.0 fL] 87.9 fL 88.0 fL 88.6 fL (02/28/14:29 AM) (02/27/14 9:30 AM) (02/26/14 5:00 PM) MCH [27.0-31.0 pg] 29.9 pg 30.1 pg 29.0 pg (02/28/14:29 AM) (02/27/14 9:30 AM) (02/26/14 5:00 PM) MCHC [32.0-36.0 g/dL] 34.1 g/dL 34.2 g/dL 32.7 g/dL (02/28/14:29 AM) (02/27/14 9:30 AM) (02/26/14 5:00 PM) RDW [11.5-14.5 %] 13.3 % 13.2 % 13.3 % (02/28/14:29 AM) (02/27/14 9:30 AM) (02/26/14 5:00 PM) Platelet [133-450 K/CMM] 237 K/CMM 262 K/CMM 235 K/CMM (02/28/14:29 AM) (02/27/14 9:30 AM) (02/26/14 5:00 PM) MPV [7.4-10.4 fL] 8.7 fL 8.7 fL 8.5 fL (02/28/14:29 AM) (02/27/14 9:30 AM) (02/26/14 5:00 PM) Segs [45.0-75.0 %] 85.5 % 91.9 % 94.3 % *HI* *HI* *HI* (02/28/14 5:29 AM) (02/27/14 9:30 AM) (02/26/14 5:00 PM) Lymphocytes [20.0-40.0 %] 8.9 % 4.4 % 4.6 % *LOW* *LOW* *LOW* (02/28/14 5:29 AM) (02/27/14 9:30 AM) (02/26/14 5:00 PM) Monocytes [2.0-12.0 %] 5.1 % 3.5 % 0.9 % (02/28/14 5:29 AM) (02/27/14 9:30 AM) *LOW* (02/26/14 5:00 PM) Eosinophils [0.0-4.0 %] 0.1 % 0.1 % 2.3 % (02/28/14 5:29 AM) (02/26/14 5:00 PM) (02/10/14 2:00 PM) Basophils [0.0-1.0 %] 0.5 % 0.2 % 0.1 % (02/28/14 5:29 AM) (02/27/14 9:30 AM) (02/26/14 5:00 PM) Segs-Bands # [1.5-8.1 14.7 K/CMM 18.6 K/CMM 14.6 K/CMM K/CMM] *HI* *HI* *HI* (02/28/14 5:29 AM) (02/27/14 9:30 AM) (02/26/14 5:00 PM) Lymphocytes # [1.0-5.5 1.5 K/CMM 0.9 K/CMM 0.7 K/CMM K/CMM] (02/28/14 5:29 AM) *LOW* *LOW* (02/27/14 9:30 AM) (02/26/14 5:00 PM) Monocytes # [0.0-0.8 K/CMM] 0.9 K/CMM 0.7 K/CMM 0.1 K/CMM *HI* (02/27/14 9:30 AM) (02/26/14 5:00 PM) (02/28/14 5:29 AM) Eosinophils # [0.0-0.5 0.2 K/CMM K/CMM] (02/10/14 2:00 PM) Basophils # [0.0-0.2 K/CMM] 0.1 K/CMM (02/28/14 5:29 AM) PT [12.0-14.7 seconds] 14.0 seconds 13.5 seconds (02/26/14 5:00 PM) (02/10/14 2:00 PM) INR [0.85-1.17] 1.08 7 1.03 8 (02/26/14 5:00 PM) (02/10/14 2:00 PM) PTT [22.9-35.8 seconds] 34.5 seconds 9 36.9 seconds 10 (02/26/14 5:00 PM) *HI* (02/10/14 2:00 PM) 7Interpretive Data: RECOMMENDED RANGES FOR PROTIME INR: 2.0-3.0 for most medical and surgical thromboembolic states. 2.5-3.5 for artificial heart valves and recurrent embolism. INR SHOULD BE USED ONLY FOR PATIENTS ON STABLE ANTICOAGULANT THERAPY.8Interpretive Data: RECOMMENDED RANGES FOR PROTIME INR: 2.0-3.0 for most medical and surgical thromboembolic states. 2.5-3.5 for artificial heart valves and recurrent embolism. INR SHOULD BE USED ONLY FOR PATIENTS ON STABLE ANTICOAGULANT THERAPY.9Interpretive Data: Heparin Therapeutic Range: 57 - 92 [id number] Data: Heparin Therapeutic Range: 57 - 92 SecondsBACTERIAL - SEROLOGY Most recent to oldest [Reference Range]: 1 2 3 MRSA by PCR Negative 11 (02/26/14 5:00 PM) 11Interpretive Data: Interpretive Data: The [employer] MRSA assay is a qualitative test for thedirect detection of nasal colonization with methicillin- resistant Staphylococcus aureus (MRSA) to aid in the prevention and control of MRSA infections in healthcare settings. A positive result does notindicate an infection or require treatment. A negative result does not exclude colonization or infection. The polymerase chain reaction (PCR) assay detects a proprietary sequence indicative of the integration of the SCCmec cassette into the Staphylococcus aureus chromosome, indicating the presence of MRSA DNA. The assay utilizes FDA cleared IVD reagents. Performance characteristics have been verified by the [facility] within the [facility]. The [facility] is authorized under the Clinical Laboratory Improvement Amendment of 1988 (CLIA-88) to performhigh complexity testing. Medications Administered During Your Visit No data available for this section Immunizations No data available for this section Procedures Procedure Type Body Site Date of Procedure Related Diagnosis Tooth extraction Social History Social History Type Response Alcohol Use: Current, Frequency: 1-2 times per month, Previous treatment: None Smoking Status Current every day smoker, Type: Cigarettes, Exposure to Tobacco Smoke pt smokes, Cigarette Smoking Last 365 Days Yes, Reg Smoking Cessation Counseling No
--- OUTSIDE RECORDS SUMMARY | 2018-01-09 12:08 | XMS REPORT | Summary of Care ---
:1975 Author Encounter HQ Jonathanr_leidy(VEE) [id number] Date(s): 01/01/14 - 01/01/14 [facility] [address] Discharge Disposition: Home Physician Attending: Sander [...]
--- OUTSIDE RECORDS SUMMARY | 2018-01-09 12:09 | XMS REPORT | Continuity of Care Document ---
:1975 Author Organization [facility] Care Team Providers Name Role Phone Sander Gordon MD Unavailable Unavailable Insurance Providers Payer name Policy type / Coverage Policy ID Covered libertarian ID Policy Mace type *SELF PAY* [facility] *SELF PAY* *SELF PAY* *SELF PAY* *SELF PAY* *SELF PAY* *SELF PAY* *SELF PAY* *SELF PAY* *SELF PAY* *SELF PAY* *SELF PAY* *SELF PAY* *SELF PAY* *SELF PAY* *SELF PAY* *SELF PAY* *SELF PAY* *SELF PAY* *SELF PAY* *SELF PAY* *SELF PAY* *SELF PAY* *SELF PAY* *SELF PAY* *SELF PAY* *SELF PAY* *SELF PAY* *SELF PAY* *SELF PAY* *SELF PAY* *SELF PAY* *SELF PAY* *SELF PAY* Encounters Encounter Performer Location Date Office Visit Sander Gordon MD [facility] [place], 2014 Allergies, Adverse Reactions, Alerts Type Substance Reaction Status Drug allergy SULFA Active Drug allergy BENADRYL Active Drug allergy CODEINE Active Problems Problem Effective Dates Problem Status CHIARI MALFORMATION, TYPE 1 Dec 30, 2013 Active TOBACCO USE DISORDER Mar 10, 2014 Active Procedures Date Description Comments Dec 30, 2013 smoking status Current every day smoker Mar 10, 2014 smoking status Current every day smoker Mar 10, 2014 smoking/tobacco cessation, patient education yes and counseling Apr 07, 2014 smoking status Current every day smoker Apr 07, 2014 smoking/tobacco cessation, patient education yes and counseling Jun 24, 2014 smoking status Current every day smoker Medications Medication Instructions Start Date Status MECLIZINE HCL 25 MG TABS Dec 30, 2013 Inactive SERTRALINE HCL 100 MG TABS Dec 30, 2013 Inactive NORCO TABS Dec 30, 2013 Inactive SEROQUEL XR 50 MG [id number] Dec 30, 2013 Inactive ZOLOFT TABS Feb 24, 2014 Inactive ALEVE 220 MG TABS Feb 24, 2014 Inactive CYCLOBENZAPRINE HCL 10 MG TABS take one pill q8h prn spasms Mar 04, 2014 Inactive AMOXICILLIN TABS Jun 24, 2014 Active Vital Signs Date Description Test Result Dec 30, 2013 weight E&M - 3141-9 WEIGHT 164.2 lb Dec 30, 2013 height E&M - 8302-2 HEIGHT 62 in Dec 30, 2013 temperature E&M TEMPERATURE 97.2 deg f Dec 30, 2013 pulse rate E&M - 8867-4 PULSE RATE 83 /min Dec 30, 2013 blood pressure, systolic - 8480-6 BP SYSTOLIC 117 mm Hg Dec 30, 2013 blood pressure, diastolic - 8462-4 BP DIASTOLIC 77 mm Hg Feb 24, 2014 weight E&M - 3141-9 WEIGHT 167 lb Feb 24, 2014 height E&M - 8302-2 HEIGHT 62 in Feb 24, 2014 temperature E&M TEMPERATURE 98 deg f Feb 24, 2014 pulse rate E&M - 8867-4 PULSE RATE 83 /min Feb 24, 2014 blood pressure, systolic - 8480-6 BP SYSTOLIC 106 mm Hg Feb 24, 2014 blood pressure, diastolic - 8462-4 BP DIASTOLIC 77 mm Hg Mar 10, 2014 weight E&M - 3141-9 WEIGHT 165.4 lb Mar 10, 2014 temperature E&M TEMPERATURE 97.3 deg f Mar 10, 2014 respiratory rate E&M - 9279-1 RESP RATE 18 /min Mar 10, 2014 pulse rate E&M - 8867-4 PULSE RATE 87 /min Mar 10, 2014 height E&M - 8302-2 HEIGHT 62 in Mar 10, 2014 blood pressure, systolic - 8480-6 BP SYSTOLIC 115 mm Hg Mar 10, 2014 blood pressure, diastolic - 8462-4 BP DIASTOLIC 77 mm Hg Apr 07, 2014 weight E&M - 3141-9 WEIGHT 163 lb Apr 07, 2014 height E&M - 8302-2 HEIGHT 62 in Apr 07, 2014 temperature E&M TEMPERATURE 98.2 deg f Apr 07, 2014 respiratory rate E&M - 9279-1 RESP RATE 18 /min Apr 07, 2014 pulse rate E&M - 8867-4 PULSE RATE 103 /min Apr 07, 2014 blood pressure, systolic - 8480-6 BP SYSTOLIC 118 mm Hg Apr 07, 2014 blood pressure, diastolic - 8462-4 BP DIASTOLIC 76 mm Hg Jun 24, 2014 weight E&M - 3141-9 WEIGHT 160.2 lb Jun 24, 2014 height E&M - 8302-2 HEIGHT 62 in Jun 24, 2014 temperature E&M TEMPERATURE 97.5 deg f Jun 24, 2014 pulse rate E&M - 8867-4 PULSE RATE 94 /min Jun 24, 2014 blood pressure, systolic - 8480-6 BP SYSTOLIC 113 mm Hg Jun 24, 2014 blood pressure, diastolic - 8462-4 BP DIASTOLIC 76 mm Hg
--- OUTSIDE RECORDS SUMMARY | 2018-01-09 12:09 | XMS REPORT | Continuity of Care Document ---
:1975 Author Organization [facility] Care Team Providers Name Role Phone Sander Gordon MD Unavailable Unavailable Insurance Providers Payer name Policy type / Coverage Policy ID Covered libertarian ID Policy Mace type *SELF PAY* [facility] *SELF PAY* *SELF PAY* *SELF PAY* *SELF PAY* *SELF PAY* *SELF PAY* *SELF PAY* *SELF PAY* Encounters Encounter Performer Location Date Office Visit Sander Gordon MD [facility] [place] Dec 30, 2013 Allergies, Adverse Reactions, Alerts Type Substance Reaction Status Drug allergy SULFA Active Drug allergy BENADRYL Active Problems Problem Effective Dates Problem Status CHIARI MALFORMATION, TYPE 1 Dec 30, 2013 Active Procedures Date Description Comments Dec 30, 2013 smoking status Current every day smoker Medications Medication Instructions Start Date Status NORCO TABS Dec 30, 2013 Active MECLIZINE HCL 25 MG TABS Dec 30, 2013 Active SERTRALINE HCL 100 MG TABS Dec 30, 2013 Active SEROQUEL XR 50 MG [id number] Dec 30, 2013 Active Vital Signs Date Description Test Result [...]
--- OUTSIDE RECORDS SUMMARY | 2018-01-09 12:09 | XMS REPORT | Continuity of Care Document ---
:1975 Author Organization [facility] Care Team Providers Name Role Phone Sander Gordon MD Unavailable Unavailable Insurance Providers Payer name Policy type / Coverage Policy ID Covered libertarian ID Policy Mace type *SELF PAY* [facility] *SELF PAY* *SELF PAY* *SELF PAY* *SELF PAY* *SELF PAY* *SELF PAY* *SELF PAY* *SELF PAY* *SELF PAY* *SELF PAY* Encounters Encounter Performer Location Date Office Visit Sander Gordon MD [facility] [place] Allergies, Adverse Reactions, Alerts Type Substance [...] 30, 2013 Active SEROQUEL XR 50 MG [id number] Dec 30, 2013 Active Vital Signs Date [...]
--- OUTSIDE RECORDS SUMMARY | 2018-01-09 12:09 | XMS REPORT | Continuity of Care Document ---
:1975 Author Organization [facility] Care Team Providers Name Role Phone Sander Gordon MD Unavailable Unavailable Insurance Providers Payer name Policy type / Coverage Policy ID Covered libertarian ID Policy Mace type *SELF PAY* [facility] OFFICE *SELF PAY* *SELF PAY* *SELF PAY* *SELF PAY* *SELF PAY* *SELF PAY* *SELF PAY* *SELF PAY* *SELF PAY* *SELF PAY* *SELF PAY* *SELF PAY* *SELF PAY* *SELF PAY* *SELF PAY* Encounters Encounter Performer Location Date Office Visit Sander Gordon MD [facility] [place] Feb 24, 2014 Allergies, Adverse Reactions, Alerts Type Substance Reaction Status Drug allergy SULFA Active Drug allergy BENADRYL Active Problems Problem Effective Dates Problem Status CHIARI MALFORMATION, TYPE 1 Dec 30, 2013 Active Procedures Date Description Comments Dec 30, 2013 smoking status Current every day smoker Medications Medication Instructions Start Date Status NORCO TABS Dec 30, 2013 Active SEROQUEL XR 50 MG [id number] Dec 30, 2013 Active MECLIZINE HCL 25 MG TABS Dec 30, 2013 Inactive SERTRALINE HCL 100 MG TABS Dec 30, 2013 Inactive ZOLOFT TABS Feb 24, 2014 Active ALEVE 220 MG TABS Feb 24, 2014 Active Vital Signs Date Description [...]
--- OUTSIDE RECORDS SUMMARY | 2018-01-09 12:09 | XMS REPORT | Summary of Care ---
:1975 Author Encounter HORTENCIA Boothe(VEE) [id number] Date(s): 06/01/14 - 06/01/14 [facility] [address] Discharge Diagnosis: Fever Discharge Diagnosis: Syncope Discharge Disposition: Home Physician Attending: Eliazar Gordon MD Reason for Visit SYNCOPE Vital Signs Most recent to oldest [Reference 1 2 3 Range]: Temperature Oral [96.4-99.1 98.4 DegF 102.5 DegF 99 DegF DegF] (06/01/14 4:00 PM) *HI* (06/01/14 12:00 PM) (06/01/14 2:50 PM) Systolic Blood Pressure [90-140 91 mmHg 99 mmHg 101 mmHg mmHg] (06/01/14 4:00 PM) (06/01/14 2:50 PM) (06/01/14 2:05 PM) Diastolic Blood Pressure [60-90 61 mmHg 58 mmHg 69 mmHg mmHg] (06/01/14 4:00 PM) *LOW* (06/01/14 2:05 PM) (06/01/14 2:50 PM) Respiratory Rate [14-20 BRMIN] 18 BRMIN 16 BRMIN 17 BRMIN (06/01/14 4:00 PM) (06/01/14 2:50 PM) (06/01/14 2:05 PM) Peripheral Pulse Rate [60-100 102 bpm 110 bpm 112 bpm bpm] *HI* *HI* *HI* (06/01/14 4:00 PM) (06/01/14 2:50 PM) (06/01/14 2:05 PM) Weight 73.636 kg (06/01/14 11:50 AM) Problem List Condition Effective Dates Status Health Status Informant Anxiety(Confirmed) Active Chiari malformation type Active I(Confirmed) Depression(Confirmed) Active GERD - Gastro-esophageal reflux Active disease(Confirmed) Migraine headache(Confirmed)1 Resolved 1with dizziness and syncopy Allergies, Adverse Reactions, Alerts Substance Reaction Severity Status Benadryl Active codeine Active sulfa drugs Active Medications Augmentin 500 mg oral tablet 1 tab, PO, Q8H, # 30 tab, 0 Refill(s) Start Date: 06/01/14 Stop Date: 06/11/14 Status: OrderedSaline Flush 0.9% 10 mL, Route: IVP, Drug Form: INJ, Dosing Weight 83.6, kg, PRN, PRN Line Flush, Start date: 06/01/1510:53:00, Duration: 30 day, Stop date: 07/01/14 12:52:00 Notes: (Same as: BD Posiflush) Start Date: 06/01/14 Stop Date: 06/01/14 Status: DiscontinuedTylenol 1,000 mg, Route: PO, ONCE, Dosing Weight 73.636, kg, Start date: 06/01/14 15:01: 00, Stop date: 06/01/14 15:01:00 Start Date: 06/01/14 Stop Date: 06/01/14 Status: Completed Results ELECTROLYTES Most recent to oldest [Reference Range]: 1 Sodium Lvl [135-145 mEq/L] 139 mEq/L (06/01/14 12:37 PM) Potassium Lvl [3.5-5.1 mEq/L] 3.7 mEq/L (06/01/14 12:37 PM) Chloride Lvl [95-109 mEq/L] 108 mEq/L (06/01/14 12:37 PM) CO2 [24-32 mEq/L] 23 mEq/L *LOW* (06/01/14 12:37 PM) AGAP [10.0-20.0 mEq/L] 11.7 mEq/L (06/01/14 12:37 PM) CHEM PANEL Most recent to oldest [Reference Range]: 1 Creatinine Lvl [0.5-1.4 mg/dL] 0.9 mg/dL (06/01/14 12:37 PM) eGFR 82 mL/min/1.73m2 1 *NA* (06/01/14 12:37 PM) BUN [7-22 mg/dL] 7 mg/dL (06/01/14 12:37 PM) B/C Ratio [6-25] 8 (06/01/14 12:37 PM) Glucose Lvl [70-99 mg/dL] 91 mg/dL 2 (06/01/14 12:37 PM) Total Protein [6.4-8.4 g/dL] 6.6 g/dL (06/01/14 12:37 PM) Albumin Lvl [3.5-5.0 g/dL] 3.4 g/dL *LOW* (06/01/14:37 PM) Globulin [2.0-4.0 g/dL] 3.2 g/dL (06/01/14 12:37 PM) A/G Ratio [0.7-1.6] 1.1 (06/01/14 12:37 PM) Calcium Lvl [8.5-10.5 mg/dL] 8.1 mg/dL *LOW* (06/01/14 12:37 PM) ALT [0-65 unit/L] 31 unit/L (06/01/14 12:37 PM) AST [0-37 unit/L] 14 unit/L (06/01/14 12:37 PM) Alk Phos [39-136 unit/L] 101 unit/L (06/01/14 12:37 PM) Bili Total [0.2-1.3 mg/dL] 0.3 mg/dL (06/01/14 12:37 PM) Lactic Acid Lvl [0.5-2.2 mMol/L] 2.2 mMol/L (06/01/14 4:01 PM) 1Result Comment: The eGFR is calculated [...] eGFR should be multiplied by the estimated BMI.2Interpretive Data: Adult reference range values reflect the clinical guidelines of the [place] [employer].CARDIAC ENZYMES Most recent to oldest [Reference Range]: 1 Total CK [12-191 unit/L] 69 unit/L (06/01/14 12:37 PM) CK MB [0.5-3.6 ng/mL] <0.5 ng/mL (06/01/14 12:37 PM) CK MB Index [0.0-2.5] <0.7 (06/01/14 12:37 PM) Troponin-I [0.00-0.40 ng/mL] <0.02 ng/mL (06/01/14 12:37 PM) ENDOCRINOLOGY Most recent to oldest [Reference Range]: 1 S Preg [Negative] Negative *NA* (06/01/14:37 PM) URINE AND STOOL Most recent to oldest [Reference Range]: 1 UA Turbidity [Clear] Slight Cloudy (06/01/14 12:47 PM) UA Color [Yellow] Yellow *NA* (06/01/14 12:47 PM) UA pH [5.0-8.0] 7.0 (06/01/14 12:47 PM) UA Spec Grav [<=1.030] 1.020 (06/01/14 12:47 PM) UA Glucose [Negative mg/dL] Negative mg/dL (06/01/14 12:47 PM) UA Blood [Negative] Negative (06/01/14 12:47 PM) UA Ketones [Negative mg/dL] Negative mg/dL *NA* (06/01/1447 PM) UA Protein [Negative mg/dL] Negative mg/dL (06/01/14 12:47 PM) UA Urobilinogen [0.1-1.0 EU/dL] 0.2 EU/dL (06/01/14 12:47 PM) UA Bili [Negative] Negative *NA* (06/01/14 12:47 PM) UA Leuk Est [Negative] Negative (06/01/14 12:47 PM) UA Nitrite [Negative] Negative (06/01/14 12:47 PM) UA WBC [None Seen /HPF] 0-2 /HPF (06/01/14 12:47 PM) UA RBC [0-2 /HPF] 0-2 /HPF (06/01/14 12:47 PM) UA Bacteria [None Seen /HPF] Moderate /HPF (06/01/14 12:47 PM) UA Sq Epi [Few /LPF] Moderate /LPF *ABN* (06/01/14 12:47 PM) UA Mucus [None Seen] None Seen (06/01/14 12:47 PM) HEMATOLOGY Most recent to oldest [Reference Range]: 1 WBC [3.7-10.4 K/CMM] 7.4 K/CMM (06/01/14 12:37 PM) RBC [4.20-5.40 M/CMM] 4.39 M/CMM (06/01/14 12:37 PM) Hgb [12.0-16.0 g/dL] 12.6 g/dL (06/01/14 12:37 PM) Hct [36.0-48.0 %] 38.3 % (06/01/14:37 PM) MCV [80.0-98.0 fL] 87.1 fL (06/01/14 12:37 PM) MCH [27.0-31.0 pg] 28.6 pg (06/01/14 12:37 PM) MCHC [32.0-36.0 g/dL] 32.8 g/dL (06/01/14 12:37 PM) RDW [11.5-14.5 %] 13.2 % (06/01/14 12:37 PM) Platelet [133-450 K/CMM] 210 K/CMM (06/01/14 12:37 PM) MPV [7.4-10.4 fL] 8.5 fL (06/01/14 12:37 PM) Segs [45.0-75.0 %] 90.4 % *HI* (06/01/14:37 PM) Lymphocytes [20.0-40.0 %] 4.2 % *LOW* (06/01/14:37 PM) Monocytes [2.0-12.0 %] 3.7 % (06/01/14 12:37 PM) Eosinophils [0.0-4.0 %] 1.6 % (06/01/14 12:37 PM) Basophils [0.0-1.0 %] 0.1 % (06/01/14 12:37 PM) Segs-Bands # [1.5-8.1 K/CMM] 6.7 K/CMM (06/01/14 12:37 PM) Lymphocytes # [1.0-5.5 K/CMM] 0.3 K/CMM *LOW* (06/01/14 12:37 PM) Monocytes # [0.0-0.8 K/CMM] 0.3 K/CMM (06/01/14 12:37 PM) Eosinophils # [0.0-0.5 K/CMM] 0.1 K/CMM (06/01/14 12:37 PM) Basophils # [0.0-0.2 K/CMM] 0.0 K/CMM (06/01/14 12:37 PM) RBC Morph Normal (06/01/14 12:37 PM) Plt Morph Normal (06/01/14 12:37 PM) Medications Administered During Your Visit No data [...]
--- OUTSIDE RECORDS SUMMARY | 2018-01-09 12:09 | XMS REPORT | Continuity of Care Document ---
:1975 Author Organization [facility] Care Team Providers Name Role Phone Sander Gordon MD Unavailable Unavailable Insurance Providers Payer name Policy type / Coverage Policy ID Covered alliance party ID Policy Mace type *SELF PAY* [facility] OFFICE *SELF PAY* *SELF PAY* [...] Office Visit Sander Gordon MD [facility] [place] Allergies, Adverse Reactions, Alerts Type Substance [...] smoking/tobacco cessation, patient education yes and counseling Medications Medication Instructions Start Date Status NORCO TABS Dec 30, 2013 Active SEROQUEL XR 50 MG [id number] Dec 30, 2013 Active MECLIZINE HCL 25 MG TABS Dec 30, 2013 Inactive SERTRALINE HCL 100 MG TABS Dec 30, 2013 Inactive ZOLOFT TABS Feb 24, 2014 Active ALEVE 220 MG TABS Feb 24, 2014 Active CYCLOBENZAPRINE HCL 10 MG TABS take one pill q8h prn spasms Mar 04, 2014 Active Vital Signs Date Description Test [...]
--- OUTSIDE RECORDS SUMMARY | 2018-01-09 12:09 | XMS REPORT | Continuity of Care Document ---
[...] Visit Sander Gordon MD [facility] [place] Apr 07, 2014 Allergies, Adverse Reactions, Alerts Type Substance [...] 30, 2013 Active SEROQUEL XR 50 MG [id number] Dec 30, 2013 Active MECLIZINE HCL 25 [...]
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
[2018-01-09] MEDS ORDERED: NA CHLORIDE 0.9% 1,000 ML ONE (13:48)
[2018-01-09 14:30] LABS: Absolute Lymphocytes (CBC) 2.2 K/uL (0.7-4.9); Absolute Monocytes 0.4 K/uL (0.1-1.3); Absolute Neutrophil 6.9 K/uL (1.8-8.0); Basophils % 0.9 % (0-1.3); Eosinophils % 2.6 % (0-4.4); Hematocrit 42.1 % (36.0-45.0); MCH 28.9 pg (27.0-35.0); MCV 85.8 fL (80-100); MPV 8.7 fL (7.6-11.3)
[2018-01-09 15:04] LABS: ALT/SGPT 30 U/L (12-78); AST/SGOT 18 U/L (15-37); Albumin 3.9 g/dL (3.4-5.0); Alkaline Phosphatase 109 U/L (45-117); BUN Blood Urea Nitrogen 9 mg/dL (7-18); Bicarbonate 30 mmol/L (21-32); Bilirubin Direct < 0.1 mg/dL (0-0.2); Bilirubin Total 0.2 mg/dL (0.2-1.0); Glucose Level 77 mg/dL (74-106); Magnesium 2.2 mg/dL (1.8-2.4); Potassium 3.6 mmol/L (3.5-5.1); Sodium Level 141 mmol/L (136-145); Troponin (Emerg Dept Use Only) < 0.02 ng/mL (0.0-0.045)
--- NOTE | 2018-01-09 15:09 | RAD REPORT ---
EXAM DESCRIPTION: MRI - Brain Wo Cont - 01/09/2018 2:43 pm CLINICAL HISTORY: headache History of Chiari malformation. COMPARISON: Head Brain Wo Cont dated 07/03/2016; Brain Wo Cont dated 02/03/2016; Ct Stroke Brain Wo C ont dated 02/03/2016 TECHNIQUE: Multi-sequence, multiplanar MR imaging of the brain was performed without contrast. FINDINGS: No intracranial hemorrhage, hydrocephalus or extra-axial fluid collections.A few T2/FLAIR hyperintensities in the subcortical frontotemporal white matter appear unchanged. No edema or shift o f midline structures. No findings to suspect brain mass. DWI is negative for acute CVA. Midline structures are normally formed. Evidence of previous suboccipital craniotomy noted. Mastoid air cells and paranasal sinuses are clear. IMPRESSION: No acute intracranial abnormalities. No significant adverse change since 2015 comparativ e brain MR. Evidence of prior suboccipital craniotomy.
--- NOTE | 2018-01-09 15:13 | RAD REPORT ---
EXAM DESCRIPTION: CT - Head Brain Wo Cont - 01/09/2018 2:55 pm CLINICAL HISTORY: Headache COMPARISON: Head Brain Wo Cont dated 07/03/2016; Ct Stroke Brain Wo Cont dated 02/03/2016 TECHNIQUE: All CT scans are performed using dose optimization technique as appropriate and may inclu de automated exposure control or mA/KV adjustment according to patient size. FINDINGS: No intracranial hemorrhage, hydrocephalus or extra-axial fluid collection.No areas of brai n edema or evidence of midline shift. The paranasal sinuses and mastoids are clear. Evidence of prior suboccipital craniotomy noted. IMPRESSION: No acute intracranial abnormality.
--- NOTE | 2018-01-09 15:30 | RAD REPORT ---
EXAM DESCRIPTION: RAD - Chest Single View - 01/09/2018 3:25 pm CLINICAL HISTORY: Pneumonia Chest pain. COMPARISON: Chest Single View dated 07/03/2016; Chest Single View dated 02/03/2016 FINDINGS: Portable technique limits examination quality. The lungs are grossly clear. The heart is normal in size. No displaced fractures. IMPRESSION: No acute intrathoracic process suspected.
[2018-01-09 15:47] LABS: Urine Blood TRACE (NEG); Urine Glucose NEGATIVE (NEG); Urine Protein NEGATIVE (NEG); Urine Specific Gravity 1.015 (1.005-1.030)
--- NOTE | 2018-01-09 17:04 | EDPHYS ---
Physician Documentation [facility] Name: Kitty Webster Age: 42 yrs Sex: Female : 1975 Arrival Date: 01/09/2018 Time: 12:04 Bed 25 Private MD: None, None ED Physician Maxi Read HPI: 01/09 13:22 This 42 yrs old Female presents to ER via Ambulatory with complaints of Chest rn Pain, Headache. 13:22 The patient or guardian reports chest pain that is located primarily in the substernal rn area. Onset: 1 hour(s) ago. The pain radiates to Associated signs and symptoms: Pertinent positives: lightheadedness, paresthesias. The chest pain is described as aching, sharp. Duration: The patient or guardian reports a single episode, that is still ongoing. Severity of pain: At its worst the pain was moderate in the emergency department the pain is unchanged. The patient has experienced similar episodes in the past. 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 Also reports mild tingling to left leg, reports has had TIA in past last time when she was admitted for chest pain, told heart was ok, takes baby aspirin, no weakness or other focal neurological complaint.. 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 - Social history:: Smoking status: Patient uses tobacco products, smokes one pack cigarettes per day. - Ebola Screening: : Patient negative for fever greater than or equal to 101.5 degrees Fahrenheit, and additional compatible Ebola Virus Disease symptoms Patient denies exposure to infectious person Patient denies travel to an Ebola-affected area in the 21 days before illness onset No symptoms or risks identified at this time. - Family history:: not pertinent. - Hospitalizations: : No recent hospitalization is reported. ROS: 13:22 Constitutional: Negative for fever, chills, and weight loss, Eyes: Negative for injury, rn pain, redness, and discharge, Neck: Negative for injury, pain, and swelling, Cardiovascular: Negative for edema, Respiratory: Negative for shortness of breath, cough, wheezing, and pleuritic chest pain, Abdomen/GI: Negative for abdominal pain, nausea, vomiting, diarrhea, and constipation, MS/Extremity: Negative for injury and deformity, Skin: Negative for injury, rash, and discoloration, Neuro: Negative for weakness, and seizure. Exam: 13:22 Constitutional: This is a well developed, well nourished patient who is awake, alert, rn appears anxious Head/Face: Normocephalic, atraumatic. Eyes: Pupils equal round and reactive to light, extra-ocular motions intact. Lids and lashes normal. Conjunctiva and sclera are non-icteric and not injected. Cornea within normal limits. Periorbital areas with no swelling, redness, or edema. Neck: Trachea midline, no thyromegaly or masses palpated, and no cervical lymphadenopathy. Supple, full range of motion without nuchal rigidity, or vertebral point tenderness. No Meningismus. Cardiovascular: Regular rate and rhythm with a normal S1 and S2. No gallops, murmurs, or rubs. Normal PMI, no JVD. No pulse deficits. Respiratory: Lungs have equal breath sounds bilaterally, clear to auscultation and percussion. No rales, rhonchi or wheezes noted. No increased work of breathing, no retractions or nasal flaring. Abdomen/GI: Soft, non-tender, with normal bowel sounds. No distension or tympany. No guarding or rebound. No evidence of tenderness throughout. Skin: Warm, dry with normal turgor. Normal color with no rashes, no lesions, and no evidence of cellulitis. MS/ Extremity: Pulses equal, no cyanosis. Neurovascular intact. Full, normal range of motion. Equal circumference. Neuro: Awake and alert, GCS 15, oriented to person, place, time, and situation. Cranial nerves II-XII grossly intact. Motor strength 5/5 in all extremities. Mild decreased sensation to soft touch left leg below knee, otherwise intact. Vital Signs: 12:10 BP 133 / 63; Pulse 88; Resp 17; Temp 97.8; Pulse Ox 99% on R/A; Weight 77.11 kg; Height aj 5 ft. 2 in. (157.48 cm); 15:53 BP 112 / 70; Pulse 78; Resp 18; Pulse Ox 100% on R/A; tl3 15:56 BP 114 / 75; Pulse 64; Resp 18; Pulse Ox 100% on R/A; mg2 17:23 BP 100 / 61; Pulse 62; Resp 18; Pulse Ox 100% on R/A; tl3 12:10 Body Mass Index 31.09 (77.11 kg, 157.48 cm) aj MDM: 13:12 Patient medically screened. rn 15:33 Differential diagnosis: acute myocardial infarction, acute pericarditis, anxiety, chest rn wall pain, costochondritis, esophagitis, gastritis, gastroesophageal reflux disease (GERD), pericarditis, pleurisy, pneumonia, pneumothorax. Data reviewed: vital signs, nurses notes, lab test result(s), EKG, radiologic studies, CT scan, MRI, and as a result, I will discharge patient. Counseling: I had a detailed discussion with the patient and/or guardian regarding: the historical points, exam findings, and any diagnostic results supporting the discharge/admit diagnosis, lab results, radiology results, the need for outpatient follow up, to return to the emergency department if symptoms worsen or persist or if there are any questions or concerns that arise at home. Response to treatment: the patient's symptoms have mildly improved after treatment, and as a result, I will discharge patient. Special discussion: Based on the patient's history, exam, and Dx evaluation, there is no indication for emergent intervention or inpatient Tx. It is understood by the patient/guardian that if the Sx's persist or worsen they need to return immediately for re-evaluation. I discussed with the patient/guardian in detail that at this point there is no indication for admission to the hospital. It is understood, however, that if the symptoms persist or worsen the patient needs to return immediately for re-evaluation. Based on the history and exam findings, there is no indication for further emergent testing or inpatient evaluation. I discussed with the patient/guardian the need to see the primary care provider for further evaluation of the symptoms. 15:33 ED course: Neg MRI brain, normal trop, no change in ECG, will dc home as no clear rn etiology, recommended outpt pcp and cardiology f/u. . 17:02 ED course: trop neg x 2. rn 01/09 13:21 Order name: Basic Metabolic Panel rn 01/09 13:21 Order name: CBC with Diff rn 01/09 13:21 Order name: LFT's rn 01/09 13:21 Order name: Magnesium rn 01/09 13:21 Order name: PT-INR rn 01/09 13:21 Order name: Troponin (emerg Dept Use Only) rn 01/09 14:33 Order name: CBC with Automated Diff; Complete Time: 14:34 EDID 01/09 14:46 Order name: Protime (+INR); Complete Time: 15:11 EDID 01/09 14:46 Order name: PTT, Activated Partial Thromb; Complete Time: 15:11 EDID 01/09 15:07 Order name: Basic Metabolic Panel; Complete Time: 15:11 EDID 01/09 15:08 Order name: Liver (Hepatic) Function; Complete Time: 15:11 EDID 01/09 15:08 Order name: Troponin (Emerg Dept Use Only); Complete Time: 15:11 EDID 01/09 15:08 Order name: Magnesium; Complete Time: 15:11 EDID 01/09 15:49 Order name: Urine Dipstick-Ancillary; Complete Time: 16:25 EDID 01/09 12:13 Order name: EKG - Nurse/Tech; Complete Time: 13:30 01/09 13:21 Order name: XRAY Chest (1 view) rn 01/09 13:21 Order name: Cardiac monitoring; Complete Time: 13:30 01/09 13:21 Order name: IV Saline Lock; Complete Time: 13:30 01/09 13:21 Order name: Labs collected and sent; Complete Time: 13:30 01/09 13:21 Order name: O2 Per Protocol; Complete Time: 13:30 01/09 13:21 Order name: O2 Sat Monitoring; Complete Time: 13:30 01/09 13:21 Order name: CT Head Brain wo Cont rn 01/09 14:18 Order name: MRI - Brain Wo Cont rn 01/09 15:12 Order name: MRI; Complete Time: 15:16 EDID 01/09 15:17 Order name: CT; Complete Time: 15:34 EDID 01/09 15:41 Order name: RAD; Complete Time: 16:25 [facility] 01/09 16:25 Order name: Troponin (emerg Dept Use Only) rn 01/09 16:57 Order name: Troponin (Emerg Dept Use Only); Complete Time: 17:02 [facility] 01/09 13:21 Order name: Urine Test (obtain specimen); Complete Time: 15:55 rn Administered Medications: 13:42 Drug: NS 0.9% 1000 ml Route: IV; Rate: 1000 ml; Site: left antecubital; Delivery: tl3 Primary tubing; 15:55 Follow up: IV Status: Completed infusion; IV Intake: 1000ml tl3 Disposition: 01/09/18 17:03 Discharged to Home. Impression: Chest pain, unspecified, Paresthesia of skin. - Condition is Stable. - Discharge Instructions: Nonspecific Chest Pain, Paresthesia. - Medication Reconciliation Form, Thank You Letter, Antibiotic Education, Prescription Opioid Use form. - Follow up: Private Physician; When: As needed; Reason: Recheck today's complaints, Re-evaluation by your physician. - Problem is new. - Symptoms have improved. Signatures: Dispatcher [employer] Mary Guillen RN RN aj Nieto, Roman, MD MD rn Lowrey, Tammy, RN RN tl3 Corrections: (The following items were deleted from the chart) 17:25 17:03 01/09/2018 17:03 Discharged to Home. Impression: Chest pain, unspecified; tl3 Paresthesia of skin. Condition is Stable. Forms are Medication Reconciliation Form, Thank You Letter, Antibiotic Education, Prescription Opioid Use. Follow up: Private Physician; When: As needed; Reason: Recheck today's complaints, Re-evaluation by your physician. Problem is new. Symptoms have improved. rn
--- NOTE | 2018-01-09 17:04 | ER ---
Nurse's Notes [facility] Name: Kitty Webster Age: 42 yrs Sex: Female : 1975 Arrival Date: 01/09/2018 Time: 12:04 Bed 25 Private MD: None, None Diagnosis: Chest pain, unspecified;Paresthesia of skin Presentation: 01/09 12:08 Presenting complaint: Patient states: Headache that started 20 min [employer] and chest pain aj that is worse with deep breathing that started 10 min [employer]. Patient appears anxious in triage. Transition of care: patient was not received from another setting of care. Onset of symptoms was January 09, 2018. Risk Assessment: Do you want to hurt yourself or someone else? Patient reports no desire to harm self or others. Initial Sepsis Screen: Does the patient meet any 2 criteria? No. Patient's initial sepsis screen is negative. Does the patient have a suspected source of infection? No. Patient's initial sepsis screen is negative. Care prior to arrival: None. 12:08 Method Of Arrival: Ambulatory aj 12:08 Acuity: MIKE 3 aj Triage Assessment: 12:10 General: Appears in no apparent distress. comfortable, Behavior is cooperative, aj anxious. Pain: Complains of pain in face, scalp and chest Aggravated by deep breathing. Neuro: Level of Consciousness is awake, alert, obeys commands, Oriented to person, place, time, situation, Appropriate for age Breaker Boss are equal bilaterally Moves all extremities. Full function Gait is steady, Speech is normal, Facial symmetry appears normal, Pupils are PERRLA, Intact Reports headache. Cardiovascular: Reports chest pain, Capillary refill < 3 seconds in bilateral fingers Patient's skin is warm and dry. Rhythm is regular. Respiratory: Reports pain with respiration Airway is patent Respiratory effort is even, unlabored, Respiratory pattern is regular, symmetrical. GI: No signs and/or symptoms were reported involving the gastrointestinal system. Abdomen is obese. Derm: Skin is intact, is healthy with good turgor, Skin is pink, warm \T\ dry. normal. 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 - Social history:: Smoking status: Patient uses tobacco products, smokes one pack cigarettes per day. - Ebola Screening: : Patient negative for fever greater than or equal to 101.5 degrees Fahrenheit, and additional compatible Ebola Virus Disease symptoms Patient denies exposure to infectious person Patient denies travel to an Ebola-affected area in the 21 days before illness onset No symptoms or risks identified at this time. - Family history:: not pertinent. - Hospitalizations: : No recent hospitalization is reported. Screenin:20 Abuse screen: Denies threats or abuse. Nutritional screening: No deficits noted. tl3 Tuberculosis screening: No symptoms or risk factors identified. Fall Risk None identified. Assessment: 13:20 General: Appears comfortable, well groomed, well developed, well nourished, Behavior is tl3 calm, cooperative, appropriate for age. Pain: Complains of pain in chest and scalp and face Pain does not radiate. Pain began 1 hour ago. Neuro: Level of Consciousness is awake, alert, obeys commands, Oriented to person, place, time, situation, Appropriate for age Breaker Boss are equal bilaterally Moves all extremities. Full function Gait is Speech is normal, Facial symmetry appears normal, left lower leg has different sensation than right. 15:53 Reassessment: No changes from previously documented assessment. Patient and/or family tl3 updated on plan of care and expected duration. Pain level reassessed. Patient is alert, oriented x 3, equal unlabored respirations, skin warm/dry/pink. pt tolerated MRI well, no needs at this time. 17:23 Reassessment: Patient appears in no apparent distress at this time. No changes from tl3 previously documented assessment. Patient and/or family updated on plan of care and expected duration. Pain level reassessed. Patient is alert, oriented x 3, equal unlabored respirations, skin warm/dry/pink. Vital Signs: 12:10 BP 133 / 63; Pulse 88; Resp 17; Temp 97.8; Pulse Ox 99% on R/A; Weight 77.11 kg; Height aj 5 ft. 2 in. (157.48 cm); 15:53 BP 112 / 70; Pulse 78; Resp 18; Pulse Ox 100% on R/A; tl3 15:56 BP 114 / 75; Pulse 64; Resp 18; Pulse Ox 100% on R/A; mg2 17:23 BP 100 / 61; Pulse 62; Resp 18; Pulse Ox 100% on R/A; tl3 12:10 Body Mass Index 31.09 (77.11 kg, 157.48 cm) aj ED Course: 12:04 Patient arrived in ED. iw 12:04 None, None is Private Physician. iw 12:09 Triage completed. aj 12:10 Arm band placed on left wrist. Patient placed in waiting room, Patient notified of wait aj time Patient Requested EKG to triage. 12:21 EKG completed in triage. Results shown to MD. aj 13:11 Maxi Read MD is Attending Physician. rn 13:20 Patient has correct armband on for positive identification. Placed in gown. Bed in low tl3 position. Call light in reach. Side rails up X 1. Adult w/ patient. brownfield redevelopment specialist on. Pulse ox on. NIBP on. Warm blanket given. 13:20 No provider procedures requiring assistance completed. Initial lab(s) drawn, by me, tl3 sent to lab. EKG done, by ED staff. Inserted saline lock: 20 gauge in left antecubital area, using aseptic technique. Blood collected. Patient maintains SpO2 saturation greater than 95% on room air. 13:30 Arabella Murcia, RN is Primary Nurse. tl3 14:10 Patient moved to [facility] via wheelchair. ka 15:22 X-ray completed. Portable x-ray completed in exam room. Patient tolerated procedure ag1 well. 16:00 Lab(s) recollected, by me. tl3 17:11 IV discontinued, intact, bleeding controlled, No redness/swelling at site. Pressure mg2 dressing applied. Administered Medications: 13:42 Drug: NS 0.9% 1000 ml Route: IV; Rate: 1000 ml; Site: left antecubital; Delivery: tl3 Primary tubing; 15:55 Follow up: IV Status: Completed infusion; IV Intake: 1000ml tl3 Intake: 15:55 IV: 1000ml; Total: 1000ml. tl3 Outcome: 17:03 Discharge ordered by . rn 17:23 Discharged to home ambulatory. tl3 17:23 Condition: good 17:23 Discharge instructions given to patient, Instructed on discharge instructions, follow up and referral plans. Demonstrated understanding of instructions, follow-up care. 17:25 Patient left the ED. tl3 Signatures: Mary Swann, RN RN Ariella Londono RN RN iw Nieto, Roman, MD MD rn Gallaway, Ashley ag1 Velma Ross Tammy, RN RN tl3 Kevan Philippe RN RN mg2
== END 2018-01-09 17:25 | disposition home or self-care (01) ==
LOC: ER 12:03
DX: R20.2 Paresthesia of skin (principal); F41.9 Anxiety disorder, unspecified; F32.9 Major depressive disorder, single episode, unspecified; Z88.2 Allergy status to sulfonamides
CPT/HCPCS: 36415; 70450; 70551; 71045; 80048; 80076; 81003; 83735; 84484; 85025; 85610; 85730; 93005; J7030